=== PATIENT | male | born 1960 | race Caucasian/White ===

== ENCOUNTER → 2024-05-19 06:43 | Day surgery (SDC) | payer BC, SELFPAY ==
[2024-05-19 08:05] VITALS: BMI 47.0
--- NOTE | 2024-05-19 08:39 | ITS.CL.CARDI ---
Castings Trimmer - Cardioversion
Cardioversion
Procedure Report:
Date of Procedure: May 19 2024
Procedure: Cardioversion
Indication: Symptomatic atrial fibrillation
Performing Physician: Tu Ramirez DO [facility]
Technique: The patient was brought to the holding area. Signed informed consent was obtained. A time out was called and performed. The patient was anesthetized by the anesthesia service. Anticoagulation status was reviewed and appropriate. R2 pads
were placed anteriorly and posteriorly. A 250 J synchronized biphasic shock was unsuccessful in restoring normal sinus rhythm. A second and thrid attempt were also made with 300 and 360 J shocks respectively but these were also ineffective.
He tolerated the procedure well.
Conclusion: Unsuccessful uncomplicated cardioversion from atrial fibrillation.
Recommendation:
Routine post cardioversion care.
Continue rat farmer anticoagulation.
Discussed the need for continued wt loss, eval of sleep apnea and re-eval with cardiology to discuss other options.
Discussed with his as well. They were appreciative and understand recommendations.
== END ==
LOC: CATH 06:43
PROVIDERS: ATTENDING PHYSICIAN Nuclear Medicine Nuclear Cardiology; FAMILY PHYSICIAN Nurse Practitioner
DX: I48.91 Unspecified atrial fibrillation (principal); B19.20 Unspecified viral hepatitis C without hepatic coma; I10 Essential (primary) hypertension; K21.9 Gastro-esophageal reflux disease without esophagitis; E66.01 Morbid (severe) obesity due to excess calories; Z68.43 Body mass index [BMI] 50.0-59.9, adult; Z87.891 Personal history of nicotine dependence; Z79.01 Long term (current) use of anticoagulants
CPT/HCPCS: 92960; 93005

== ENCOUNTER → 2024-05-23 14:10 | Outpatient (REF) | payer BC, SELFPAY | LOC: RAD 14:10 | PROVIDERS: ATTENDING PHYSICIAN Nurse Practitioner | DX: L81.9 Disorder of pigmentation, unspecified (principal); L65.9 Nonscarring hair loss, unspecified; I73.9 Peripheral vascular disease, unspecified | CPT/HCPCS: 93922; 93925 ==

== ENCOUNTER → 2024-06-11 08:57 | Outpatient (REF) | payer BC, SELFPAY | LOC: HWRCS 08:57 | PROVIDERS: ATTENDING PHYSICIAN Physician Assistant Medical; FAMILY PHYSICIAN Nurse Practitioner | DX: I48.91 Unspecified atrial fibrillation (principal); I10 Essential (primary) hypertension | CPT/HCPCS: 93306 ==

== ENCOUNTER → 2024-06-25 16:03 | Outpatient (REF) | payer BC, SELFPAY | LOC: DHSLP 16:03 | PROVIDERS: ATTENDING PHYSICIAN Internal Medicine Cardiovascular Disease; FAMILY PHYSICIAN Nurse Practitioner | DX: G47.33 Obstructive sleep apnea (adult) (pediatric) (principal); R09.02 Hypoxemia | CPT/HCPCS: 95800 ==

== ENCOUNTER → 2024-08-29 07:32 | Outpatient (REF) | payer BC, SELFPAY | LOC: HWRAD 07:32 | PROVIDERS: ATTENDING PHYSICIAN Thoracic Surgery (Cardiothoracic Vascular Surgery); FAMILY PHYSICIAN Nurse Practitioner Family | DX: Z01.810 Encounter for preprocedural cardiovascular examination (principal); I36.1 Nonrheumatic tricuspid (valve) insufficiency; K75.9 Inflammatory liver disease, unspecified | CPT/HCPCS: 71275; 74174; 76705; Q9967 ==

== ENCOUNTER → 2024-09-08 07:13 | Day surgery (SDC) | payer BC, SELFPAY ==
[2024-09-08] MEDS: ASPIR LOW (ENTERIC COATED) 324 MG PO (08:18)
[2024-09-08 08:21] VITALS: BMI 47.7
[2024-09-08 08:25] VITALS: BP 109/66
--- NOTE | 2024-09-08 10:00 | PTCARENOTE ---
dr Whyte in to speak w pt reguarding consent. pt notified that he did not stop his eliquis as instructed. he last took it last night 12-8 at 8pm. therefore the procedure was cancelled for today and rescheduled for this sunday. pt was given
specific written and verbal instructions to hold eliquis until after case .and start asa tomorrow, since he was given asa today .
== END | disposition home or self-care (01) ==
LOC: CATH 07:13
PROVIDERS: ATTENDING PHYSICIAN Internal Medicine Interventional Cardiology; FAMILY PHYSICIAN Nurse Practitioner Family; OTHER PHYSICIAN Thoracic Surgery (Cardiothoracic Vascular Surgery)
DX: I10 Essential (primary) hypertension (principal); Z53.09 Procedure and treatment not carried out because of other contraindication; E66.9 Obesity, unspecified; E78.5 Hyperlipidemia, unspecified

== ENCOUNTER 2024-09-10 08:57 | Day surgery (SDC) | payer BC, SELFPAY ==
[2024-09-09 17:27] VITALS: BMI 47.0
[2024-09-10] VITALS (9 sets, daily range): BP systolic 92–168; BP diastolic 56–118
[2024-09-10] MEDS: NSS 500 IV (09:37)
--- NOTE | 2024-09-10 12:19 | ITS.CL.CATH ---
Afloat Cryptologic Manager - Catheterization
Cardiac Catheterization
Procedure Report:
LEFT HEART CATHETERIZATION
Date of Procedure: September 10, 2024
Referring: Cisco Moreno MD
PROCEDURES:
1. Left heart catheterization, coronary angiogram.
2. Ultrasound-guided access
INDICATION: Issa is a 64-year-old morbidly obese gentleman with past medical history of obstructive sleep apnea, hypertension, hyperlipidemia, paroxysmal atrial fibrillation, mild asthma, spinal stenosis with a 5.5 cm ascending thoracic aorta
being considered for elective ascending aortic replacement and is now being referred for a presurgical left heart catheterization to rule out obstructive CAD.
ACCESS: Right radial artery, 6 Nigerian sheath, under ultrasound guidance
HEMODYNAMICS : (mmHg)
AO (s/d) : 115/70
LV (s/d) : 115/16
LVEDP : 27
CORONARY FINDINGS--significant right subclavian tortuosity. We utilized 6 Nigerian JL 5 and 6 Nigerian 3 [facility] diagnostic catheters to selectively engage into the left and right coronary artery, respectively.
DOMINANCE: Right
LEFT MAIN: Left main artery is a large-caliber vessel which gives rise to the left anterior descending artery and the left circumflex artery. There is minimal luminal irregularities.
LEFT ANTERIOR DESCENDING: The left anterior descending artery is a large-caliber vessel which gives rise to multiple small to medium caliber diagonal branches as it courses to the anterior interventricular groove towards the apex. There is minimal
luminal irregularities.
CIRCUMFLEX: The left circumflex artery is a medium caliber vessel which gives rise to 1 medium caliber high rising OM branch and a second medium to large caliber OM 2 branch. There is minimal luminal irregularities.
RIGHT CORONARY ARTERY: The right coronary artery is a large-caliber, dominant vessel which gives rise to the right posterior descending artery. Mid RCA has a smooth tubular up to 50% stenosis.
SEDATION: 33 minutes of procedural sedation was utilized. An independent medical imaging specialist was present to assist with and help manage the patient's level of consciousness and physiologic status.
RADIATION SUMMARY: Fluoro Time (min): 8.9, Dose (mGy): 660.4, DAP (Gy.cm2) : 46.08
Closure Device: Vascular band over right radial artery, 10 cc of air.
CONCLUSIONS
1. No obstructive coronary artery disease.
2. Mid RCA has a smooth tubular up to 50% stenosis.
3. Significantly elevated LVEDP at 27 mmHg.
RECOMMENDATIONS
1. We will initiate low-dose beta-lupis in the setting of known ascending aortic aneurysm to reduce shear stress.
2. Wean radial band per protocol.
3. Optimization of cardiovascular risk factors.
4. Eventual referral for outpatient cardiac rehab post cardiac surgery.
Copy to: Cisco Moreno MD
Arlene Whyte MD, [facility], [facility]
[2024-09-10] MEDS: LASIX 20 MG IV (14:23)
== END 2024-09-10 16:34 | disposition home or self-care (01) ==
LOC: CATH 08:57
PROVIDERS: ATTENDING PHYSICIAN Internal Medicine Interventional Cardiology; FAMILY PHYSICIAN Nurse Practitioner Family; OTHER PHYSICIAN Thoracic Surgery (Cardiothoracic Vascular Surgery)
DX: I48.0 Paroxysmal atrial fibrillation (principal); I25.10 Atherosclerotic heart disease of native coronary artery without angina pectoris; I10 Essential (primary) hypertension; E78.5 Hyperlipidemia, unspecified; G47.33 Obstructive sleep apnea (adult) (pediatric); E66.01 Morbid (severe) obesity due to excess calories; Z68.42 Body mass index [BMI] 45.0-49.9, adult; Z87.891 Personal history of nicotine dependence; Z79.01 Long term (current) use of anticoagulants; Z79.85 Long-term (current) use of injectable non-insulin antidiabetic drugs; Z79.82 Long term (current) use of aspirin
CPT/HCPCS: 99152; 99153; C1894; C1769; 93458; Q9967

== ENCOUNTER 2024-09-15 05:05 | Inpatient (IN) | payer BC, SELFPAY ==
[2024-08-20 08:27] VITALS: BMI 47.6
[2024-08-20 09:29] LABS: % Basophils 0.8 % (0-2); % Eosinophils 1.8 % (0-6); % Immature Granulocytes 0.4 % (0-0.5); % Lymphocytes 21.9 % (20.5-51.1); % Monocytes 8.5 % (1.7-9.3); % Neutrophils 66.6 % (42.2-75.2); Absolute Basophils 0.1 10^3/uL (0-0.2); Absolute Eosinophils 0.1 10^3/uL (0-0.7); Absolute Lymphocytes 1.6 10^3/uL (1.2-3.4); Absolute Monocytes 0.6 10^3/uL (0.1-0.6); Absolute Neutrophils 4.8 10^3/uL (1.4-6.5); Hematocrit 43.4 % (39.0-52.0); Hemoglobin 14.6 g/dL (13.0-18.0); Mean Corp Hgb Conc. 33.6 g/dL (33.0-37.0); Mean Corpuscular Hgb 28.1 pg (27.0-31.0); Mean Corpuscular Volume 83.5 fL (80.0-94.0); Mean Platelet Volume 10.1 fL (7.4-10.4); Nucleated Red Blood Cells % 0 % (-); Platelet Count 234 10^3/uL (130-400); Red Cell Dist. Width 14.7 % (11.5-14.5); White Blood Cell Count 7.2 10^3/uL (4.8-10.8)
[2024-08-20 09:42] LABS: PT 16.7 Sec (11.4-14.6)
[2024-08-20 09:43] LABS: APTT 37.2 Sec (23.4-35.0)
[2024-08-20 10:05] LABS: ALT (SGPT) 21 U/L (0-50); AST (SGOT) 20 U/L (17-59); Albumin 4.8 g/dl (3.5-5.0); Alkaline Phosphatase 56 U/L (38-126); Blood Urea Nitrogen 14 mg/dl (9-20); Calcium 9.1 mg/dl (8.4-10.2); Carbon Dioxide 29 mmol/L (22-30); Chloride 100 mmol/L (98-107); Direct Bilirubin 0.2 mg/dl (0.0-0.4); Estimated Creatinine Clearance 108 ml/min; Glucose 99 mg/dl (70-99); Potassium 4.7 mmol/L (3.5-5.1); Sodium 142 mmol/L (135-145); Total Bilirubin 0.6 mg/dl (0.2-1.3); Total Protein 7.2 g/dl (6.3-8.2); eGFR > 60.00
[2024-08-20 10:19] LABS: Urine Albumin Trace (Neg - Trace); Urine Bilirubin Negative (Negative); Urine Character Clear (Clear); Urine Color Yellow; Urine Glucose Negative (Negative); Urine Ketone Negative (Negative); Urine Leukocyte Negative (Negative); Urine Nitrite Negative (Negative); Urine Occult Blood Negative (Negative); Urine Urobilinogen Negative (Neg - 1+)
--- NOTE | 2024-08-20 10:57 | CM ---
CM following for DC planning needs.
Met w/ patient and spouse during PATs for planned CT Surgery, 09/15.
Pt. resides w/ spouse in a private, 2 story home w/ 1 [address]. Functionally, patient is indep. at baseline w/ ADLs, mobility without the use of any assisted device, though, patient does have a SPC for use as needed and uses on occasion.
Spouse works but will be avail. upon DC to offer assist. Also has dtr., who lives close-by and is a [employer] SUPERVISOR.
Pt. has Rx plan and uses [facility] for Rx needs.
Reviewed pre and post op routines.
Soap, shower instructions and Cardiac Surgery booklet provided.
Discussed post op MD appointments, Cardiac Rehab and visit from CT Transitional Care RN.
Plan for surgery, 09/15.
Anticipated DC plan is for home with CT Transitional Care RN.
Will follow for DC planning needs.
[2024-08-20 15:44] LABS: Glycohemoglobin (HgbA1c) 5.4 % (4.0-5.6)
[2024-09-15] VITALS (12 sets, daily range): BP systolic 80–125; BP diastolic 44–86; PULSE 2–86; BMI 47.6; BMI 48.3
[2024-09-15] MEDS: MAGNESIUM OXIDE 500 MG PO (05:30)
[2024-09-15] MEDS: BACTROBAN 2% OINTMENT 1 APPLIC NASAL ×2 (05:30→19:52)
[2024-09-15] MEDS: LOPRESSOR 25 MG PO (05:30)
[2024-09-15] MEDS: PROTONIX 40 MG PO (05:30)
--- NOTE | 2024-09-15 06:15 | W.CVOR.SURPR ---
CVOR Surgeon Immed Pre Op
-
I have examined this patient prior to performance of the scheduled procedure.
The patient's condition is unchanged from the time of the dictated/written History and
Physical and the patient is able to undergo the scheduled procedure.
Hemiarch + LA MAZE + [place] Clip +/- AV Repair
--- NOTE | 2024-09-15 06:31 | PTCARENOTE ---
Patient ambulated onto unit escorted by security personnel. Prepared for OR; clipped surgical areas, wiped with CHG, wrist band applied. Took medications as prescribed. Admission questionnaire completed, patient oriented to room, at bedside.
Await CVOR call.
[2024-09-15 07:48] LABS: ACT+ - POC 104 Seconds (82-134)
[2024-09-15 08:37] LABS: Urine Albumin Negative (Neg - Trace); Urine Bilirubin Negative (Negative); Urine Character Clear (Clear); Urine Color Yellow; Urine Glucose Negative (Negative); Urine Ketone Negative (Negative); Urine Leukocyte Negative (Negative); Urine Nitrite Negative (Negative); Urine Occult Blood Negative (Negative); Urine Urobilinogen Negative (Neg - 1+); Urine pH 6.5 (5.0-9.0)
[2024-09-15 09:14] LABS: ACT+ - POC 701 Seconds (82-134)
[2024-09-15 09:36] LABS: B.E. - POC 0.4 mmol/L; Glucose - POC 110 mg/dl (70-99); HCO3 - POC 26 mmol/L (21-28); Hematocrit - POC 39 % PCV (42-52); Hemodilution- POC No; Hemoglobin Calculated - POC 13.3; Ionized Calcium - POC 1.23 mmol/L (1.15-1.33); O2 Saturation %Calculated-POC 99.5 % (94-98); PCO2 - POC 47 mmHg (35-48); PO2 - POC 170 mmHg (83-108); POC Comment PRE; Potassium - POC 4.3 mmol/L (3.5-5.1); Sodium - POC 137 mmol/L (136-145); Specimen Type - POC Arterial; pH - POC 7.36 (7.35-7.45)
[2024-09-15 09:48] LABS: ACT+ - POC 671 Seconds (82-134)
[2024-09-15 09:55] LABS: B.E. - POC 3.8 mmol/L; Glucose - POC 173 mg/dl (70-99); HCO3 - POC 30 mmol/L (21-28); Hematocrit - POC 30 % PCV (42-52); Hemodilution- POC Yes; Hemoglobin Calculated - POC 10.3; Ionized Calcium - POC 1.11 mmol/L (1.15-1.33); O2 Saturation %Calculated-POC 99.9 % (94-98); PCO2 - POC 55 mmHg (35-48); PO2 - POC 358 mmHg (83-108); POC Comment CPB; Potassium - POC 4.6 mmol/L (3.5-5.1); Sodium - POC 136 mmol/L (136-145); Specimen Type - POC Arterial; pH - POC 7.35 (7.35-7.45)
[2024-09-15 10:34] LABS: B.E. - POC 0.1 mmol/L; Glucose - POC 173 mg/dl (70-99); HCO3 - POC 27 mmol/L (21-28); Hematocrit - POC 31 % PCV (42-52); Hemodilution- POC Yes; Hemoglobin Calculated - POC 10.4; Ionized Calcium - POC 1.13 mmol/L (1.15-1.33); O2 Saturation %Calculated-POC 99.9 % (94-98); PCO2 - POC 51 mmHg (35-48); PO2 - POC 279 mmHg (83-108); POC Comment CPB; Potassium - POC 4.2 mmol/L (3.5-5.1); Sodium - POC 137 mmol/L (136-145); Specimen Type - POC Arterial; pH - POC 7.33 (7.35-7.45)
[2024-09-15 10:46] LABS: ACT+ - POC 726 Seconds (82-134)
[2024-09-15 11:08] LABS: B.E. - POC 3.6 mmol/L; Glucose - POC 214 mg/dl (70-99); HCO3 - POC 32 mmol/L (21-28); Hematocrit - POC 33 % PCV (42-52); Hemodilution- POC Yes; Hemoglobin Calculated - POC 11.1; Ionized Calcium - POC 1.15 mmol/L (1.15-1.33); O2 Saturation %Calculated-POC 99.9 % (94-98); PCO2 - POC 68 mmHg (35-48); PO2 - POC 355 mmHg (83-108); POC Comment WARM; Potassium - POC 4.2 mmol/L (3.5-5.1); Sodium - POC 137 mmol/L (136-145); Specimen Type - POC Arterial; pH - POC 7.28 (7.35-7.45)
[2024-09-15 11:17] LABS: ACT+ - POC 592 Seconds (82-134)
--- NOTE | 2024-09-15 11:24 | CM ---
Chart reviewed. Patient is independent of ADLS, lives with his in a [facility], [facility], uses a SPC occasionally. Plan is for the patient to return home with CT Transitional RN. CM to follow
[2024-09-15 11:40] LABS: B.E. - POC 0.9 mmol/L; Glucose - POC 221 mg/dl (70-99); HCO3 - POC 25 mmol/L (21-28); Hematocrit - POC 34 % PCV (42-52); Hemodilution- POC Yes; Hemoglobin Calculated - POC 11.5; Ionized Calcium - POC 1.09 mmol/L (1.15-1.33); O2 Saturation %Calculated-POC 99.7 % (94-98); PCO2 - POC 38 mmHg (35-48); PO2 - POC 201 mmHg (83-108); POC Comment CPB; Potassium - POC 3.3 mmol/L (3.5-5.1); Sodium - POC 140 mmol/L (136-145); Specimen Type - POC Arterial; pH - POC 7.43 (7.35-7.45)
[2024-09-15 11:51] LABS: ACT+ - POC 452 Seconds (82-134)
[2024-09-15 12:27] LABS: B.E. - POC -1.5 mmol/L; Glucose - POC 150 mg/dl (70-99); HCO3 - POC 23 mmol/L (21-28); Hematocrit - POC 34 % PCV (42-52); Hemodilution- POC Yes; Hemoglobin Calculated - POC 11.5; Ionized Calcium - POC 1.23 mmol/L (1.15-1.33); O2 Saturation %Calculated-POC 99.9 % (94-98); PCO2 - POC 39 mmHg (35-48); PO2 - POC 307 mmHg (83-108); POC Comment CPB; Potassium - POC 3.8 mmol/L (3.5-5.1); Sodium - POC 142 mmol/L (136-145); Specimen Type - POC Arterial; pH - POC 7.39 (7.35-7.45)
[2024-09-15 12:30] LABS: ACT+ - POC 104 Seconds (82-134)
[2024-09-15 12:43] LABS: Glucose - POC 122 mg/dl (70-99); HCO3 - POC 29 mmol/L (21-28); Hematocrit - POC 33 % PCV (42-52); Hemodilution- POC Yes; Hemoglobin Calculated - POC 11.3; Ionized Calcium - POC 1.07 mmol/L (1.15-1.33); O2 Saturation %Calculated-POC 99.9 % (94-98); PCO2 - POC 55 mmHg (35-48); PO2 - POC 342 mmHg (83-108); POC Comment POST; Potassium - POC 3.5 mmol/L (3.5-5.1); Sodium - POC 141 mmol/L (136-145); Specimen Type - POC Arterial; pH - POC 7.33 (7.35-7.45)
--- NOTE | 2024-09-15 12:58 | W.PN.CT.SURG ---
CT Surgery Operative Note
-
CARDIAC SURGERY OPERATIVE REPORT
Preoperative Diagnosis: Ascending aortic aneurysm with mild aortic valve sufficiency and atrial fibrillation
Postoperative Diagnosis: Same
Procedure(s) Performed:
1. Standard sternotomy with aortic and right atrial cannulation
2. Moderate hypothermic circulatory arrest with selective antegrade cerebral perfusion
3. Hemiarch aortic replacement
4. Aortic valve repair � resuspension of aortic valve at the commissures, debridement of aortic valve nodularity at the NCC, and plication of NCC with 5-0 prolene
5. Surgical open left atrial maze [combination of RF and cryo ablation]
6. Left atrial appendage exclusion [40 mm clip]
7. Placement of temporary atrial ventricular pacing wires
8. Transesophageal echocardiography
Date of Surgery: 09/15/2024
Comorbidities:
1. Ascending aortic aneurysm, 5.7 cm
2. Mild aortic valve insufficiency
3. Paroxysmal atrial fibrillation
4. Morbidly obese with a BMI of 48
5. Hypertension
6. Hyperlipidemia
7. 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
8. Hepatitis C status post antiviral treatment
9. Spinal stenosis with concomitant orthopedic issues
10. Neuropathy
11. XAVIER
12. History of smoking, quit 15 years ago
13. GERD
Attending Surgeon: Cisco Moreno MD, MS
Assistants: Anai Crespo PA-C (present and necessary to assistant terminal manager, retraction, suction, exposure, suture management, and wound closure under my direction)
Anesthesiology: Germán Luna MD and Renetta Blackwood CRNA
Scrub and Circulating RNs: Ros Hernández, RN, Portia Ramon RN
Lawyer [employer]: Francesco Bearden CCP
Anesthesia: GETA
EBL: per perfusion records
Products: 2 plts, 450 cell saver, and 800 of whole blood (autologous)
CPB Time: 155 minutes
Aortic Cross Clamp Time: 81 minutes
Circulatory Arrest Time: 23 minutes
Selective Antegrade Cerebral Perfusion Time: 22 minutes
MAZE Lesion Sets:
1. Box lesion to posterior LA wall
2. INDIANA lesion + IND[place] Exclusion + Division of Ligament of Jaime
3. Coronary sinus lesion
4. Posterior mitral annular line toward P2/P3
Indication(s) for Procedures: This is a 64-year-old male with multiple comorbidities being worked up for ablation and was found to have a significant ascending aortic aneurysm of 5.5 cm. Follow-up CTA with centerline measurement demonstrated a
maximum diameter of 5.7 with some tapering towards the innominate base. His root was preserved his STJ was slightly splayed and he had mild to moderate aortic valve insufficiency which was central. Given the size of his aneurysm as well as his
paroxysmal atrial fibrillation, he was offered hemiarch resection, repair of the aortic valve and maze for management of his atrial fibrillation.
Aortic Valve Description: Trileaflet aortic valve, with an abnormal appearing raphae at the right coronary cusp that formed into a pseudo commissure. Nodularity and thickening at the nodes of Arantius with some splaying of the leaflets secondary to
dilation of his sinotubular junction. The left and right coronary ostia within normal anatomic positions
Findings: His left ventricular ejection fraction preoperatively was preserved at 60 to 65% with no significant regional wall motion abnormalities. His LV was mildly dilated on preoperative transesophageal echocardiography. There is evidence that
he was severely overloaded. Following surgery his EF remained the same at 60% with no new regional wall motion abnormalities. He was preoperatively placed on 2 of dobutamine given his dilated LV. His head vessels were isolated at the innominate
and left common carotid. His hemiarch resection was performed under moderate hypothermic circulatory arrest at a temperature of 28 �C. Review selective cerebral perfusion via the innominate artery maintaining a pressure of 70 and had head
saturations that were within normal range. All abnormal and dilated aortic tissue was resected. Once the distal anastomosis was completed, flow to the body was resumed and rewarming was commenced. His aortic valve was resuspended at the
commissures using pledgeted 4-0 Prolene sutures. His noncoronary cusp had a significant area of nodularity and thickening towards the node of Arantius which I felt was not coapting as well as it should. This was resected with a 15 blade and then
the leaflet was plicated at the free margin there with 5-0 Prolene. Suction testing of the LVOT revealed the leaflets naturally warm to come together. The proximal anastomosis was then completed and transesophageal echocardiography was used to
evaluate the aortic valve. Initially he had mild to moderate aortic valve insufficiency with a vena contract that is bordering 0.5 cm. Following repair, he had mild aortic valve insufficiency. He has bilateral radial artery arterial tracings were
the same. His cardiac index was over 2, he required 2 platelets and also received scavenged blood from the field via Cell Saver and also was given back 800 cc of whole blood that was taken off during initial commencement of cardiopulmonary bypass.
Of note the left atrial appendage was verified to be free of any thrombus or debris preoperatively and was found to be totally occlusive postoperatively.
Specimen(s): Aortic tissue.
Prosthesis:
1. 28 mm single branch graft, serial #[id number]
2. Bovine biological patch, serial number [id number]
3. 40 mm left atrial appendage clip, serial number #[id number].
4. Sealant glue, nonpermanent, serial number [id number]
Description of Procedure: The patient was taken to the operating room. Their identity and procedure to be performed were verified and they were positioned supine on the operating table. Induction via general anesthesia with endotracheal intubation
was performed and central venous access and arterial monitoring were inserted. A preoperative transesophageal echocardiogram was performed to assess cardiac function and valvular function. The patient was then prepped and draped from chin to feet in
a sterile fashion. A preoperative time-out was performed with all members of the team present. A midline chest incision was performed along with median sternotomy. The innominate vein was isolated and pulled rostrally. Next the head vessels were
dissected out circumferentially surrounded with Vesseloops at the innominate artery base and the left common carotid. Full heparinization was given (a total of 60,000 units). We created a pericardial well. The pericardial reflection was then
dissected and I traveled more towards the arch freeing up the lesser curve from the ligament. At this point both the Vesseloops to the left common carotid and the innominate base were brought underneath the innominate vein into the field. The
aortic cannulation site was chosen where it was soft, pliable, and free of calcium. Cannulation was performed with an arterial cannula in the ascending aorta and a triple-stage venous cannula through the right atrial appendage. The arterial cannula
line had an appropriate bounce and correlating pressures with test dosing. 5-0 pledgeted Prolene was placed on the innominate base and a 12-gauge Angiocath was then inserted and connected by clamped to the pigtail off the aortic line. The ACT was
confirmed to be over 400 and retrograde autologous priming was performed before commencing cardiopulmonary bypass. The superior vena cava was then away from the right pulmonary artery. The oblique sinus was then developed manually with
fingers. Next the encompass clamp was passed through the transverse sinus and oblique sinuses below the SVC and IVC. 3 successful pairs of ablation were performed with RF ablation. The clamp was then removed from the field. The pulmonary artery
was away from the aorta to facilitate a clamp site and aortotomy. The aorta was then mobilized circumferentially towards his posterior reflection. A left ventricular vent was placed at the right superior pulmonary vein and secured. The
aortic cross-clamp was placed after decreasing the flow on the bypass and mean arterial pressure. A total of 1.0L initial dose of antegrade Del-Nido cardioplegia solution was given and planned for re-dosing every 75 minutes as necessary. There was
rapid electro-mechanical arrest of the heart at 400 cc of cardioplegia. The left ventricle was observed for distention on echocardiogram and manual palpation. Cold slush was placed into a sponge and topically on the RV while we systemically cooled
to 28 degrees centigrade. The heart was then medialized and the ligament Jaime was divided and the left atrial appendage was ligated with a 40 mm clip
Carbon dioxide was used to flood the field. We manually identified the location of the right coronary take off. An aortotomy was made approximately 2cm above the sinotubular junction and the aorta was fully transected. I then cut down towards the
commissures sequentially and placed 4-0 pledgeted sutures after freeing the surrounding structures off of the root. These were then tied to themselves. The noncoronary cusp was then shaved at the Stacy as it was very nodular and
thickened. A 5-0 Prolene suture was then used to plicate the free margin here and coaptation height seemed appropriate. At this point we had reached our desired temperature of 28 �C I turned my attention towards circulatory arrest and cinching
down on the head vessels. Flows on the bypass machine were then turned off and the cross-clamp was removed after placing the patient in steep Trendelenburg with ice pack around her head. I then removed the previous cannulation site and dissected
the aorta up towards the base the innominate and then circumferentially beveling underneath the lesser curve of the arch. A freestyle sizer was initially used to size the sinotubular junction which was 28 mm. A 28 mm graft with a single 8 mm
sidebranch was then brought to the field and soaked. It was beveled at the distal end and 4-0 Prolene was used to perform this anastomosis in a running fashion using bovine pericardium as a gasket. Once completed, surgical nonpermanent sealant was
placed around the suture lines. The innominate and left common carotid arteries were then allowed to backbleed and the pump was slowly turned back on after placing the aortic cannula into the 8 mm sidebranch. De-airing was performed of the distal
graft. The cross-clamp was then replaced and rewarming was commenced. The ACP cannula was then removed and the 5-0 Prolene pledgeted was then tied down. I then cut the graft to size and 4-0 Prolene was already placed at the commissures were used
to sew the proximal anastomosis using bovine pericardium as a gasket. Again surgical sealant that was nonpermanent was applied around the proximal suture line. A 16-gauge Angiocath was then inserted into the graft and de-airing maneuvers were
performed. A left atriotomy was created at the AV groove at this point and 3 additional cryo lines were performed at the left atrial appendage, the coronary sinus, and the mitral annular line. The left atrium was then closed with 3-0 Prolene in a
running fashion after de-airing. Temporary bipolar ventricular pacing wires were placed on the base of the right ventricle along with atrial pacing wires at the SVC right atrial junction. The patient was placed in a Trendelenburg position and flows
on bypass were lowered. The aortic cross clamp was removed and flows were slowly brought back up. The aortotomy appeared hemostatic. Transesophageal echocardiography revealed worsening aortic valve leak. Once de-airing was satisfactory, the left
ventricular and root vents were removed. After verifying acceptable parameters, we initiated weaning from cardiopulmonary bypass. Once we were off cardiopulmonary bypass, the venous cannula was clamped and removed. A test dose of protamine was
administered and the patient was monitored for any adverse reaction before resuming protamine. Once half of the protamine dose was delivered, pump suckers were turned off and the systolic blood pressure was lowered for aortic decannulation. Both
proximal and distal suture lines were evaluated for hemostasis. Additional pledgeted 4-0 Prolene repairs were performed. The aortic cannula was tied down with a heavy silk at the base of the 8 mm graft and then transected and double clipped with
large clips. All cannulation sites were oversewn with a 4-0 prolene. The aortotomy suture line was inspected and hemostasis was confirmed. Mediastinal hemostasis was obtained. Two 24Fr Saman drains were placed within the pericardium. The sternum was
approximated with 4#7 single and 3 #8 double stainless steel wires. 3 additional plates were placed given the patient's size at the manubrium, manubrial sternal junction, and lower sternal body. Fascia was approximated with #1 vicryl suture. The
subcutaneous, dermis and epidermis were closed in layers in a running fashion. The skin wound was cleansed and dressed.
All instrument, sponge, and needle counts were confirmed to be correct x 2 at the end of the operation. The patient was transferred to the cardiac intensive care unit in critical but stable condition.
I, Dr. Cisco Moreno, was present, scrubbed for, and performed all critical elements of this procedure.
Cisco Moreno MD, MS
Cardiothoracic Surgeon
[facility]
This operative dictation was created using the [employer] dictation system. Please excuse any grammatical, typographical, or 'sound alike' errors
--- NOTE | 2024-09-15 13:08 | CON.INTV ---
Consultation
Consultation Request
Date/Time Consultation Requested: 09/15/2024 - 1231
Date/Time Consultation Performed: 09/15/2024 - 1300
Requesting Provider: RUSSELL Lance
Performing Provider: Dr. Schreiber
Reason for Consultation: s/p AV repair
Medical History
-
Chief Complaint: Elective aortic valve repair with hemiarch aortic replacement
History of Present Illness:
64-year-old male with a past medical history of AAA without rupture, paroxysmal A-fib, mild intermittent asthma, hypertension, hyperlipidemia, insomnia, moderate XAVIER, former tobacco smoker, hep C s/p treatment and chronic back pain who presents with
aortic valve repair with hemiarch aortic replacement. Patient known to the cardiothoracic surgery service with last visit on 08/11/[address] Moreno. Patient recently had a CT chest as part of a preablation workup for a TAVR which showed a
fusiform aneurysmal dilatation of his ascending thoracic aorta measuring 5.5 cm in diameter. A CTA chest/abdomen/pelvis was repeated on 08/29/2024 showing a 5.7 cm aneurysmal dilatation of the ascending thoracic aorta. Prior echo performed on
06/11/2024 showed mild TR, mild AI with preserved LVEF at 55 � 60 %. He did undergo a left heart catheterization on 09/10/2024 showing no obstructive CAD, with a mid RCA smooth tubular 50% stenotic region with an elevated LVEDP at 27 mmHg.
Cardiothoracic surgical intervention with risks and benefits were discussed in detail, and patient agreed to surgery. Today he underwent a standard sternotomy with moderate hypothermic circulatory arrest with selective antegrade cerebral perfusion,
with hemiarch aortic replacement, aortic valve repair, and a surgical open left atrial maze with a left atrial appendage exclusion. There were no complications and he was transferred to the ICU postoperatively for further care.
Dump Truck Operator/pulmonary service is now consulted for additional management/recommendations.
When I saw the patient he was resting in bed, intubated on SIMV at 16/600/40%/8, with PIP 21 cmH2O, VTe 546 mL and breathing at 16 breaths/min. Currently, heart rate 84, BP via left radial A-line: 110/54, BP via right radial A-line: 111/58, PAP:
26/15, CO/CI: 4.91/1.88, respectively, and BP via NIBP: 87/60. He is currently on nitroglycerin drip at 10mcg/min, and dobutamine at 2mcg/kg/min, amio at 1mg/min and insulin drip at 2.3 units/hr. He has mediastinal chest tubes x [address]
Of note, patient follows with us in the [facility] office with last visit on 08/07/[address] Moreno. Patient had a home sleep apnea test performed on 06/25/2024 showing moderate XAVIER with an overall AHI of 16.5 with marleni O2 saturation of 81%. He is
agreeable to CPAP which is being arranged. He was told to follow-up with our office in 3 months for compliance of his PAP.
PMHx: Hep C s/p treatment, A-fib on Eliquis, asthma, obesity, spinal stenosis, arthritis, GERD, back pain, former tobacco use disorder, hypertension, hyperlipidemia, liver fibrosis, history of hemorrhoids, colonic polyps with tubuvillous adenoma,
insomnia, neuropathy, moderate XAVIER, osteoarthritis
PSHx: Bilateral knee replacements, laminectomy
Past Medical History
Past Medical History: Other (Above as per HPI)
Past Surgical History: Other (Above as per HPI)
Social History
Tobacco: Former Smoker (Smoked 1 PPD for 13 years, quit >10 years ago)
Alcohol: None
Drug: Marijuana (Smokes THC once a month)
Personal:
Living: With Family
Family History
Family History: CAD (Father + paternal aunt) and Diabetes (Mother + maternal uncle)
Allergies / Home Medications
Allergies
Allergy/AdvReac Type Severity Reaction Status Date / Time
No Known Allergies Allergy Verified 09/10/24 09:25
Home Medications
�Medication �Instructions �Recorded �Confirmed �Last Taken �Type
apixaban 5 mg tablet (Eliquis) 5 mg PO BID 03/02/23 09/10/24 09/07/24 20:00 History
diltiazem HCl 240 mg capsule,24 240 mg PO DAILY 03/02/23 09/10/24 09/10/24 07:00 History
hr,extended release
duloxetine 60 mg capsule,delayed 60 mg PO DAILYPRN PRN anxiety 03/02/23 09/10/24 09/09/24 07:00 History
release
trazodone 100 mg tablet 200 mg PO HSPRN PRN sleep 03/02/23 09/10/24 09/09/24 20:00 History
gabapentin 600 mg tablet 600 mg PO DAILY 07/23/24 09/10/24 09/09/24 07:00 History
semaglutide (weight loss) 1 mg/0.5 1 mg SC QWEEK 07/23/24 09/10/24 08/25/24 08:00 History
mL subcutaneous pen injector
(Wegovy)
Medical Cannibus 1 dose inhalation PRN PRN pain 08/18/24 09/10/24 08/31/24 08:00 History
Milk Thistle Turmeric 1 dose PO DAILY 08/18/24 09/10/24 09/09/24 07:00 History
ibuprofen 200 mg tablet (Advil) 400 mg PO Q6H PRN pain 08/18/24 09/10/24 Unknown History
docusate sodium 100 mg capsule 100 mg PO DAILY 09/08/24 09/10/24 09/09/24 20:00 History
(Stool Softener)
atorvastatin 40 mg tablet 40 mg PO DAILY #90 tabs 09/10/24 Unknown Rx
metoprolol succinate 25 mg 25 mg PO DAILY #90 tabs 09/10/24 Unknown Rx
tablet,extended release 24 hr
Review of Systems
-
Unable to Obtain full review of systems at this time due to: Patient Intubation
Vitals / Labs / Diagnostic Testing
Vital Signs
Temp Pulse Resp BP Pulse Ox
95.9 F L 82 16 80/44 93
09/15/24 16:00 09/15/24 16:04 09/15/24 16:00 09/15/24 15:52 09/15/24 16:04
Lab Data
09/15/24 13:11
Laboratory Results
09/15/24 09/15/24
13:11 14:33
PT 18.6 H
INR 1.52
APTT 33.4
pH 7.35 7.40
pCO2 49 H 43
pO2 71 L 101
HCO3 27.1 26.6
O2 Delivery Level vent
Diagnostic Testing:
Physical Exam
-
HEENT: Normocephalic, Anicteric, Other (ETT in place) and Other (Thick neck)
Cardiovascular: S1/S2 and Peripheral Edema (+1 LE edema)
Respiratory: Wheeze (negative), Rales (negative), Rhonchi (negative), Non-Labored Respirations, Other (chest tubes: mediastinal chest tubes x 2) and Other (Mechanical breath sounds heard bilaterally)
GI: Soft, Distended (Abdominal obesity), Non Tender and Normal Bowel Sounds
Neurology: Tremors (negative) and Other (Sedated)
Skin: Warm and Dry
General: Respiratory Distress (negative), Comfortable, Fever (negative) and Chills (negative)
Assessment
-
Assessment: 64-year-old male with a past medical history of AAA without rupture, paroxysmal A-fib, mild intermittent asthma, hypertension, hyperlipidemia, insomnia, moderate XAVIER, former tobacco smoker, hep C s/p treatment and chronic back pain who
presents with aortic valve repair with hemiarch aortic replacement. Patient known to the cardiothoracic surgery service with last visit on 08/11/[address] Moreno. Patient recently had a CT chest as part of a preablation workup for a TAVR which
showed a fusiform aneurysmal dilatation of his ascending thoracic aorta measuring 5.5 cm in diameter. A CTA chest/abdomen/pelvis was repeated on 08/29/2024 showing a 5.7 cm aneurysmal dilatation of the ascending thoracic aorta. Prior echo
performed on 06/11/2024 showed mild TR, mild AI with preserved LVEF at 55 � 60 %. He did undergo a left heart catheterization on 09/10/2024 showing no obstructive CAD, with a mid RCA smooth tubular 50% stenotic region with an elevated LVEDP at 27
mmHg. Cardiothoracic surgical intervention with risks and benefits were discussed in detail, and patient agreed to surgery. Today he underwent a standard sternotomy with moderate hypothermic circulatory arrest with selective antegrade cerebral
perfusion, with hemiarch aortic replacement, aortic valve repair, and a surgical open left atrial maze with a left atrial appendage exclusion. There were no complications and he was transferred to the ICU postoperatively for further care.
Dump Truck Operator/pulmonary service is now consulted for additional management/recommendations.
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
tubuvillous adenoma, insomnia, neuropathy, moderate XAVIER, osteoarthritis
Impression:
#Ascending aortic aneurysm with mild aortic valve insufficiency s/p aortic valve repair with hemiarch aortic replacement (POD #0)
#Paroxysmal A-fib on Eliquis s/p surgical open left atrial maze + left atrial appendage exclusion with 40 mm clip (POD #0)
#Anemia
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
#Hepatitis C s/p antiviral treatment
#Moderate XAVIER with CPAP being initiated as an outpatient
#GERD
#Former tobacco smoker (smoked 1 PPD for 13 years, quit >10 years ago)
#Morbid obesity (BMI: 48.3)
Plan:
Ventilator settings reviewed
FiO2 will be weaned to maintain SpO2 >90-94%
Minute ventilation will be adjusted
Arterial blood gases will be monitored
Spontaneous breathing trial will be attempted with hopeful extubation after anesthesia/sedation wear off
Given that he has a history of moderate obstructive sleep apnea and has a thick neck with severe morbid obesity, he may need to be extubated to CPAP/BiPAP especially if he still remains sleepy/lethargic at the time of extubation
prn nebulized bronchodilators
Pulmonary artery catheter parameters will be followed
Pressors/antihypertensive/inotropes/diuretics will be provided as needed
Maintain MAP>65
Replete electrolytes with K>4, Mg>2
Monitor chest tube output (mediastinal chest tubes x 2)
Monitor hemoglobin
Monitor platelet count and coags
Transfuse blood products as needed to maintain Hb>7g/dL, plt>50k (given post-operative status)
CT surgery managing chest tubes
Monitor blood sugar to maintain euglycemia with goal BG 140-180
Insulin drip per protocol
Aspiration precautions
VAP prevention protocol
DVT prophylaxis
Early nutrition
Early mobilization
Of note, patient should follow-up with us in the office as last visit was on 08/07/[address] Moreno. He follows with us for a history of moderate obstructive sleep apnea.
Critical care statement: A total of 46 minutes of critical care time was provided for this patient today. This includes management of ventilator, spontaneous breathing trial, arterial blood gases, pressors, of unstable vital signs, evaluation of the
patient at bedside, reviewing the patient's pertinent medical records including radiographs, microbiology, laboratory evaluations, and discussion with primary team and critical care nursing.
[2024-09-15 13:13] LABS: Glucose - Point of Care 139 mg/dl (70-99)
--- NOTE | 2024-09-15 13:27 | W.PN.UPDATE ---
Update Note
Progress Note Update
Crystalloid:� 1500
U.O.:� 725
UF:� 1250
Cellsaver: 450ml
Blood:� 2 plts
Wires:� A +V Wires
Inotropes:� Dobutamine 2.5
Pressors:� None
Antihypertensives: Cardene @8
Sedatives:� Precedex
�
NEURO: sedated on precedex, pupils +1mm B/L
RESP: #8OT @24cm lip> 600/60%/14/10. Lungs clear B/L. 2 mediastinal (20cc on arrival) chest tubes to -20cm suction. Sanguineous drainage
CV: RRR +S1, S2, no S3, no�rub, no murmur. Dermabond to median sternotomy. RIJ w/Snyder locked @ 50cm. PA 38/25; CVP 12;
ABD: round, soft, no BS
EXT: no edema, +2/4 DP pulses B/L, no femoral bruit, b/L radial A-line intact
: Gilmore with clear yellow urine
�
A/P: POD #0 s/p Hemiarch aortic replacement, Aortic valve repair � resuspension of aortic valve at the commissures, debridement of aortic valve nodularity at the NCC, and plication of NCC with 5-0 prolene, Surgical open left atrial maze
[combination of RF and cryo ablation], Left atrial appendage exclusion [40 mm clip]
ALYSSA: EF�Nml
- wean and extubate to bipap
- Monitor CT and urine output
- Follow up labs and CXR
- Titrate cardene for goal SBP 90-110
>>will add nitro gtt if additional medication is need for SBP control
>>if CI remains stable will titrate down Dobutamine for BP control
- Will start ASA tonight
- EKG showed SR with 1st degree AVB
- Cards consulted
�
# acute surgical blood loss anemia-expected
- trend CBC
- s/p 2plts and cell saver intraop
�
# post-op hyperglycemia
- insulin infusion x 24h
�
# Hyperlipidemia
- resume�lipitor
[2024-09-15 13:33] LABS: Hematocrit 35.3 % (39.0-52.0); Hemoglobin 12.2 g/dL (13.0-18.0); Platelet Count 171 10^3/uL (130-400)
[2024-09-15] MEDS: DILAUDID 0.5 MG IV ×4 (13:37→22:46)
[2024-09-15] MEDS: ANCEF 10 IV (13:38)
[2024-09-15] MEDS: NSS 500 IV (13:38)
[2024-09-15] MEDS: NOVOLOG FLEXPEN SC ×2 (13:38→15:44)
[2024-09-15] MEDS: NEURONTIN PO ×2 (13:38→15:44)
[2024-09-15] MEDS: TYLENOL PO (13:38)
[2024-09-15] MEDS: ANCEF 15 MG IV (13:38)
[2024-09-15] MEDS: LIPITOR PO (13:38)
[2024-09-15 13:44] LABS: APTT 33.4 Sec (23.4-35.0); INR 1.52; PT 18.6 Sec (11.4-14.6)
--- NOTE | 2024-09-15 13:45 | PTCARENOTE ---
Patient received from CVOR s/p hemiarch Ao replacement/AV repair/MAZE/[place] exclusion. NSR via cm, SaO2 @ 95% on ventilator, titrating FiO2 as able. RIJ Cordis/[place] catheter, L and R radial arterial lines present - all leveled, flushed, and
calibrated w/good waveforms returned. Epicardial A+V wires to pulse generator at back up rate 40bpm. Mediastinal chest tubes x 2, Y-connected to one pleurevac, placed to -20cm suction w/no air leak noted. Gilmroe catheter to gravity. All procedural
sites stable. Jeanine hugger applied. Labs drawn, EKG performed, pcxr obtained. See work list for full assessment, interventions performed, and intravenous infusions and titrations.
[2024-09-15 13:47] LABS: Blood Urea Nitrogen 18 mg/dl (9-20); Estimated Creatinine Clearance > 125 ml/min; Glucose 135 mg/dl (70-99); Magnesium 2.7 mg/dl (1.6-2.3)
[2024-09-15 13:51] LABS: B.E. 0.8 mmol/L; HCO3 27.1 mmol/L (21-28); Ionized Calcium 1.11 mMOL/L (1.15-1.33); O2 Saturation % 95.8 % (94-98); PCO2 49 mmHg (35-48); PO2 71 mmHg (83-108); Potassium 3.3 mMOL/L (3.5-5.1); Sodium 135 mMOL/L (136-145); pH 7.35 (7.35-7.45)
[2024-09-15 13:52] LABS: O2 Therapy vent
[2024-09-15 13:58] LABS: Mixed Venous O2 Saturation 79.4 %
[2024-09-15 14:01] LABS: Glucose - Point of Care 189 mg/dl (70-99)
[2024-09-15] MEDS: KCL 50 IV ×2 (14:09→15:09)
[2024-09-15] MEDS: CALCIUM GLUCONATE 100 IV ×2 (14:10→18:56)
[2024-09-15] MEDS: CARDENE 200 IV (14:18)
[2024-09-15 14:46] LABS: B.E. 1.5 mmol/L; HCO3 26.6 mmol/L (21-28); O2 Saturation % 98.4 % (94-98); PCO2 43 mmHg (35-48); PO2 101 mmHg (83-108)
[2024-09-15 15:00] LABS: Glucose - Point of Care 141 mg/dl (70-99)
[2024-09-15] MEDS: CORDARONE 518 MG IV (15:09)
[2024-09-15] MEDS: CORDARONE 103 MG IV (15:09)
[2024-09-15] MEDS: VERSED 0.5 MG IV (15:26)
[2024-09-15] MEDS: PACERONE PO (15:44)
[2024-09-15 15:59] LABS: Glucose - Point of Care 118 mg/dl (70-99)
[2024-09-15] MEDS: NITROGLYCERIN PREMIX 250 IV (16:15)
--- NOTE | 2024-09-15 16:35 | W.PN.CARDCBS ---
Today's Communication / Plan
-
RECOMMENDATIONS:
-Post op hemiarch for repair of thoracic aortic aneurysm, AV repair / resuspension
-Surgical maze and [place] clip
-Weaning pressors
-Goals for blood pressures outlined by CT surgery
-Will follow
Impression / Plan
-
Primary Cardiology: Dr. Nathaniel Gonzalez
PCP: Dr. Song Turner
IMPRESSION:
-Ascending aortic aneurysm:
Hemiarch aortic valve replacement
Aortic valve repair with resuspension of the valve at the commissure
Surgical Maze and [place] clip
-Paroxysmal atrial fibrillation: surgical Maze and [place] clip
-Hypertension
-Hyperlipidemia
-Asthma
-Liver fibrosis stage 1-2
-Morbid obesity
-Obstructive sleep apnea
-06/11/2024: Echo: LV: Normal size and function. EF 55-60%. Atrial fibrillation. RV: Normal, LA: Normal, RA: Normal, MV: Trace MR, AV: Mild AI, TV: Mild TR with estimated PAP 20-25 mmHg
-07/28/2024: CT chest: Fusiform dilation of the ascending thoracic aorta measuring 5.5 cm
-09/10/2024: Coronary angiography: Nonobstructive CADz
RECOMMENDATIONS:
-Post op hemiarch for repair of thoracic aortic aneurysm, AV repair / resuspension
-Surgical maze and [place] clip
-Weaning pressors
-Goals for blood pressures outlined by CT surgery
-Will follow
Progress Note - Crystal Syrup Maker
Subjective
Date of Service: September 15, 2024
Intubated and sedated post op.
Objective
Labs:
09/15/24 13:11
Labs
Hgb 12.2 g/dL (13.0-18.0) L 09/15/24 13:11
Hct 35.3 % (39.0-52.0) L 09/15/24 13:11
Plt Count 171 10^3/uL (130-400) 09/15/24 13:11
PT 18.6 Sec (11.4-14.6) H 09/15/24 13:11
INR 1.52 09/15/24 13:11
APTT 33.4 Sec (23.4-35.0) 09/15/24 13:11
Sodium 142 mmol/L (135-145) 08/20/24 08:56
Potassium 4.7 mmol/L (3.5-5.1) 08/20/24 08:56
BUN 18 mg/dl (9-20) 09/15/24 13:11
Creatinine 0.8 mg/dL (0.7-1.3) 09/15/24 13:11
Glucose 135 mg/dl (70-99) H 09/15/24 13:11
Vital Signs and I&O:
Vital Signs
Temp Pulse Resp BP Pulse Ox
95.9 F L 82 16 80/44 93
09/15/24 16:00 09/15/24 16:04 09/15/24 16:00 09/15/24 15:52 09/15/24 16:04
Vital Signs
Temp Pulse Resp BP Pulse Ox
95.9 F L 82 16 80/44 93
09/15/24 16:00 09/15/24 16:04 09/15/24 16:00 09/15/24 15:52 09/15/24 16:04
Intake & Output
09/12/24 09/13/24 09/14/24 09/15/24
23:59 23:59 23:59 23:59
Intake Total 430.9 / 430.9
Output Total 925 / 925
Balance -494.1 / -494.1
Physical Exam
Physical Exam
Gen: Intubated and sedated
HEENT: ET tube in place.
Lungs: Clear anterior and lateral
CV: RRR
Ext: No edema
[2024-09-15 17:02] LABS: Glucose - Point of Care 134 mg/dl (70-99)
[2024-09-15 17:24] LABS: Hematocrit 38.2 % (39.0-52.0); Hemoglobin 13.3 g/dL (13.0-18.0); Platelet Count 214 10^3/uL (130-400)
[2024-09-15] MEDS: ANCEF 5 IV (17:47)
[2024-09-15] MEDS: ASPIRIN 300 MG RECTAL (17:47)
[2024-09-15 17:58] LABS: Glucose - Point of Care 158 mg/dl (70-99)
[2024-09-15 18:10] LABS: B.E. 0.5 mmol/L; Ionized Calcium 1.17 mMOL/L (1.15-1.33); PCO2 44 mmHg (35-48); PO2 108 mmHg (83-108); Potassium 4.4 mMOL/L (3.5-5.1); pH 7.38 (7.35-7.45)
--- NOTE | 2024-09-15 19:00 | PTCARENOTE ---
report received from previous RN, walking rounds done. family at bedside. pt drowsy but oriented x4. pt wearing CPAP, POX 94%. B/L breath sounds present. CT x2 intact to -20cm wall suction, drainage WNL, no air leak present. SR w 1st degree AVB on
monitor, HR 80s. B/L radial and DP pulses palpable. heart tones distant. epicardial AV wires intact, set to back up VVI. no pacing spikes noted. RIJ cordis + swan intact w KVOs infusing. last CI 2.20. PAPs 20s/10s. CVP ~8. right radial and left
radial arterial lines intact. SBP 100s-110s. Nitro gtt infusing @ 10mcg. Amio gtt infusing @ 1mg. berry catheter intact, draining CYU. UO adequate. absent bowel sounds at this time. Insulin gtt infusing per glycemic protocol. all surgical sites
stable. see worklist for full assessment, VS, and interventions. pt resting between care.
[2024-09-15] MEDS: SENOKOT-S PO (19:10)
[2024-09-15 19:52] LABS: Glucose - Point of Care 146 mg/dl (70-99)
[2024-09-15] MEDS: ZOFRAN 4 MG IV (21:53)
[2024-09-15] MEDS: NEURONTIN 300 MG PO (21:53)
[2024-09-15] MEDS: TYLENOL 1000 MG PO (21:53)
[2024-09-15 22:10] LABS: Glucose - Point of Care 131 mg/dl (70-99)
--- NOTE | 2024-09-15 23:00 | PTCARENOTE ---
no acute changes in assessment, pt VSS. SR w 1st degree AVB, HR 70s. SBP 120s. Nitro gtt remains infusing @ 10mcg. Dobut gtt weaned off. last CI 2.30. Amio gtt infusing @ 0.5mg per protocol. POX 95% on 4LNC. CT output and UO WNL. all surgical sites
stable. Insulin gtt maintained per protocol. pt sleeping between care.
[2024-09-15 23:31] LABS: Glucose - Point of Care 120 mg/dl (70-99)
[2024-09-16] VITALS (20 sets, daily range): BP systolic 102–152; BP diastolic 63–95; PULSE 2–82; O2SAT 93–94; BMI 48.8
[2024-09-16 00:07] LABS: Glucose - Point of Care 120 mg/dl (70-99)
[2024-09-16 01:04] LABS: Glucose - Point of Care 115 mg/dl (70-99)
[2024-09-16 02:12] LABS: Glucose - Point of Care 108 mg/dl (70-99)
[2024-09-16] MEDS: ANCEF 5 IV ×2 (02:17→11:17)
[2024-09-16 02:23] LABS: Hemoglobin 12.7 g/dL (13.0-18.0); Mean Corp Hgb Conc. 34.3 g/dL (33.0-37.0); Mean Corpuscular Hgb 28.4 pg (27.0-31.0); Mean Corpuscular Volume 82.8 fL (80.0-94.0); Platelet Count 218 10^3/uL (130-400); Red Blood Cell Count 4.47 10^6/uL (4.70-6.10); Red Cell Dist. Width 14.6 % (11.5-14.5); White Blood Cell Count 14.7 10^3/uL (4.8-10.8)
--- NOTE | 2024-09-16 02:30 | ECGCV ---
Tyson Pinon PA-c notified of ECG critical value identified by electronic interpretation on ECG completed on 09/16/24, at 0222.
[2024-09-16 02:41] LABS: Blood Urea Nitrogen 22 mg/dl (9-20); Calcium 8.6 mg/dl (8.4-10.2); Carbon Dioxide 27 mmol/L (22-30); Chloride 103 mmol/L (98-107); Estimated Creatinine Clearance > 125 ml/min; Glucose 114 mg/dl (70-99); Magnesium 2.3 mg/dl (1.6-2.3); Potassium 5.3 mmol/L (3.5-5.1); Sodium 139 mmol/L (135-145); eGFR > 60.00
--- NOTE | 2024-09-16 03:00 | PTCARENOTE ---
pt VSS. no acute changes in assessment. SR w 1st degree, HR 70s. POX 95% on 4LNC. Amio gtt maintained @ 0.5mg. Dobut gtt remains off. CI 2.34. AM labs drawn and sent. CT output and UO WNL. Insulin gtt maintained. all surgical sites stable. pt
resting comfortably.
[2024-09-16 03:22] LABS: Mixed Venous O2 Saturation 70.1 %
[2024-09-16] MEDS: DILAUDID 0.5 MG IV ×3 (03:41→20:09)
[2024-09-16] MEDS: FLEXERIL 5 MG PO ×2 (03:42→12:53)
--- NOTE | 2024-09-16 03:59 | W.PN.CT ---
Today's Communication / Plan
-
Plan:
-No major issues overnight. Hemodynamically and neurologically intact
-Successfully extubated on 09/16/24 @ 1818 to BIPAP machine
-Weaned off dobutamine gtt this AM @ 0130, on and off NTG gtt overnight, on Amiodarone gtt per protocol given postop atrial tachycardia, remains on insulin gtt per protocol
-Currently in NSR @ 75 bpm. Pacer @ VVI 40 bpm. PO Amiodarone and BB placed currently on hold
-EKG this AM is showing ST-elevations in V1/V2, pt denies chest pain, but instead c/o back pain which he states is chronic. No rub on auscultation
-Last CI 2.34, MVO2 70.1, U/O since OR:1789
-Chest tube output: 2meds 170/290
-Lokelma given for hyperkalemia of 5.3, will check K @ 10 AM
-Cont. current meds (ASA, Lipitor, holding Lopressor and Amiodarone)
-Will benefit from SC heparin for DVT prophylaxis (given morbid obesity) until able able to resume Eliquis on POD#4
-Tele phase tomorrow when off insulin gtt per protocol. Renewed insulin gtt
-D/C swan and a-line once off dobutamine
-D/C'd right radial a-line @ 0400 (had 2 radial a-lines)
-Maintain berry another day
-Maintain temporary A/V PW (will d/c likely tomorrow)
-Maintain cordis
-Encourage use of IS
-Wean off of O2 as tolerated
-OOB into chair/Ambulate
Assessment / Plan
-
Assessment:
-S/P Standard sternotomy/Hemiarch aortic replacement/Aortic valve repair (resuspension of aortic valve at the commissures, debridement of aortic valve nodularity at the NCC, and plication of NCC with 5-0 prolene)/ Surgical open left atrial maze
[combination of RF and cryo ablation]/Left atrial appendage exclusion [40 mm clip], by Dr. Moreno, 09/15/24, pod#1
-Ascending aortic aneurysm, 5.7 cm
-Mild aortic valve insufficiency
-Mild TR
-Paroxysmal atrial fibrillation S/p Cardioversion x 3 on 05/19/24 (unsuccessful)
-Morbidly obese with a BMI of 48
-Hypertension
-Hyperlipidemia
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
-Hepatitis C status post antiviral treatment
-Spinal stenosis with concomitant orthopedic issues
-Chronic back pain
-Neuropathy
-Arthritis
-XAVIER (arrangement for CPAP as an outpatient by Pulmonary)
-Hx of tobacco use (1 ppd x 13 yrs, quit 15 years ago)
-Current marijuana use (smokes 1 once/month)
-GERD
-Hx GI bleed S/P Colonoscopy, 03/02/23 (internal hemorrhoids, otherwise unremarkable)
-S/p colonoscopy with polypectomy, 12/12/18
-S/p colonoscopy with polypectomy, 10/04/2017
-S/P EGD, 10/04/2017 (unremarkable)
-S/P Laminectomy x 3
-S/p B/L knee replacements
-Acute intraop/postop blood loss/Anemia (stable scavenged cell saver and 800 cc whole blood intraop)
-Intraop thrombocytopenia (transfused 2{5} pks of plts)
-Acute postop atelectasis
-Acute postop hypovolemia with subsequent hypervolemia
-Postop hyperkalemia, 5.3
Discussed patient care with: Cardiology, Nursing, Respiratory Therapy, Pharmacy and Care Team
Subjective
Procedure
S/P Standard sternotomy/Hemiarch aortic replacement/Aortic valve repair (resuspension of aortic valve at the commissures, debridement of aortic valve nodularity at the NCC, and plication of NCC with 5-0 prolene)/ Surgical open left atrial maze
[combination of RF and cryo ablation]/Left atrial appendage exclusion [40 mm clip], by Dr. Moreno, 09/15/24
-
Date of Service: September 16, 2024
Pt c/o back pain which he states is chronic, denies CP/SOB
Objective Data
-
Lab Results
09/16/24 02:11
09/16/24 02:11
PT 18.6 Sec (11.4-14.6) H 09/15/24 13:11
INR 1.52 09/15/24 13:11
APTT 33.4 Sec (23.4-35.0) 09/15/24 13:11
Vital Signs
Vital Signs
Temp Pulse Resp BP Pulse Ox
98.8 F 72 14 121/75 95
09/16/24 03:00 09/16/24 03:30 09/15/24 19:00 09/16/24 03:00 09/16/24 03:30
CT Intake/Output/Weight
09/15/24 09/15/24 09/16/24
06:59 18:59 06:59
Intake Total 615.4 / 1359.8 744.4 / 1359.8
Output Total 1195 / 1945 750 / 1945
Balance -579.6 / -585.2 -5.6 / -585.2
SaO2: 95 (4L)
Physical Exam
-
General: Awake, Oriented and AOx3
Cardiovascular: Regular rate & rhythm, No Murmurs, No Rub and No Gallop
Respiratory: Decreased Breath Sounds (at bases, otherwise clear)
Sternum: Stable
Incision: Clean, Dry, Intact and Dressing Intact
Extremities: Edema +1
Data Reviewed
-
Lab Results: Results Reviewed
Medications: Active Meds Reviewed
Chest X-Ray: Report Reviewed and Image Reviewed
ECG: Report Reviewed and Image Reviewed
[2024-09-16 04:15] LABS: Glucose - Point of Care 110 mg/dl (70-99)
--- NOTE | 2024-09-16 04:30 | PTCARENOTE ---
right radial art line d/c'd per orders. will keep pt lined otherwise per CT PA.
[2024-09-16] MEDS: LOKELMA 10 GRAM PO (05:50)
[2024-09-16] MEDS: TYLENOL 1000 MG PO ×3 (05:50→22:59)
[2024-09-16 05:58] LABS: Glucose - Point of Care 93 mg/dl (70-99)
--- NOTE | 2024-09-16 07:30 | PTCARENOTE ---
Assumed care of patient from mandrel cleaner RN. AAO x 3 Sitting up in chair. SR on monitor. Epicardial wire set at VVI 40. No pacing noted at present. Chest tubes x 2 to - 20 cm suction. No air leak or crepitus noted. Abdomen obese, with
hypoactive bowel sounds noted. Gilmore draining clear yellow urine. Sternal Incision c,d,i with surgical adhesive. plus 3 lower extremity edema noted. Pulses palpable. Insulin drip per glycemic protocol. Amiodarone infusing via cordis. See flow
sheets for totals/ titrations
[2024-09-16 08:15] LABS: Glucose - Point of Care 122 mg/dl (70-99)
--- NOTE | 2024-09-16 08:17 | W.PN.ANS.POP ---
Anesthesia Post Operative
- Anesthesia Post Op Note
Vital Signs Stable-See Nursing Note: Yes
Airway Patent: Yes
Adequate Pain Control: Yes
Change in Mental Status: No
Current Postoperative Nausea & Vomiting: No
Anesthesia Complications: No
General Anesthetic Recall: No
Unplanned Admission: No
Post Op Hydration Adequate: Yes
--- NOTE | 2024-09-16 08:28 | W.PN.INTV ---
Today's Communication / Plan
Recommendations
Pain control
Up OOB as tolerated
Cardiac rehab consult
Encourage incentive spirometer use
Maintain SpO2 >90 this 94%
PAP with sleep
Outpatient pulmonary/sleep office follow-up
Php Developer/Pulmonary services will continue to follow along while he remains in the CVICU; once transferred to CVICU�telemetry status then we will sign off at that time. Thank you for allowing us to be involved in the care of this patient and
please call back with any questions or concerns.
Assessment
-
Assessment: 64-year-old male with a past medical history of AAA without rupture, paroxysmal A-fib, mild intermittent asthma, hypertension, hyperlipidemia, insomnia, moderate XAVIER, former tobacco smoker, hep C s/p treatment and chronic back pain who
presents with aortic valve repair with hemiarch aortic replacement. Patient known to the cardiothoracic surgery service with last visit on 08/11/[address] Moreno. Patient recently had a CT chest as part of a preablation workup for a TAVR which
showed a fusiform aneurysmal dilatation of his ascending thoracic aorta measuring 5.5 cm in diameter. A CTA chest/abdomen/pelvis was repeated on 08/29/2024 showing a 5.7 cm aneurysmal dilatation of the ascending thoracic aorta. Prior echo
performed on 06/11/2024 showed mild TR, mild AI with preserved LVEF at 55 � 60 %. He did undergo a left heart catheterization on 09/10/2024 showing no obstructive CAD, with a mid RCA smooth tubular 50% stenotic region with an elevated LVEDP at 27
mmHg. Cardiothoracic surgical intervention with risks and benefits were discussed in detail, and patient agreed to surgery. Today he underwent a standard sternotomy with moderate hypothermic circulatory arrest with selective antegrade cerebral
perfusion, with hemiarch aortic replacement, aortic valve repair, and a surgical open left atrial maze with a left atrial appendage exclusion. There were no complications and he was transferred to the ICU postoperatively for further care.
Php Developer/pulmonary service is now consulted for additional management/recommendations.
Chronic conditions PRODUCE ASSISTANT: Hep C s/p treatment, A-fib on Eliquis, asthma, obesity, spinal stenosis, arthritis, GERD, back pain, former tobacco use disorder, hypertension, hyperlipidemia, liver fibrosis, history of hemorrhoids, colonic polyps with
tubuvillous adenoma, insomnia, neuropathy, moderate XAVIER, osteoarthritis
Impression:
#Ascending aortic aneurysm with mild aortic valve insufficiency s/p aortic valve repair with hemiarch aortic replacement (POD #1)
#Paroxysmal A-fib on Eliquis s/p surgical open left atrial maze + left atrial appendage exclusion with 40 mm clip (POD #1)
#Anemia
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
#Hepatitis C s/p antiviral treatment
#Moderate XAVIER with CPAP being initiated as an outpatient
#GERD
#Former tobacco smoker (smoked 1 PPD for 13 years, quit >10 years ago)
#Morbid obesity (BMI: 48.3)
Plan:
Patient successfully extubated on 09/15/2024 and is now on room air breathing comfortably with saturations of 95-96%
Maintain SpO2 >90-94%
Continue BiPAP with sleep given his Hx of XAVIER
prn nebulized bronchodilators
Encourage incentive spirometer use
Pulmonary artery catheter parameters will be followed
Pressors/antihypertensive/inotropes/diuretics will be provided as needed
Maintain MAP>65
Replete electrolytes with K>4, Mg>2
Monitor chest tube output (mediastinal chest tubes x 2)
Monitor hemoglobin
Monitor platelet count and coags
Transfuse blood products as needed to maintain Hb>7g/dL, plt>50k (given post-operative status)
CT surgery managing chest tubes
Monitor blood sugar to maintain euglycemia with goal BG 140-180
Insulin drip per protocol
Aspiration precautions
DVT prophylaxis
Early nutrition
Early mobilization
Of note, patient should follow-up with us in the office as last visit was on 08/07/[address] Moreno. He follows with us for a history of moderate obstructive sleep apnea.
Php Developer services will continue to follow along while patient remains in the CVICU. Once transferred to CVICU�telemetry status then we will sign off at that time.
Critical care statement: A total of 41 minutes of critical care time was provided for this patient today. This includes management of ventilator, spontaneous breathing trial, arterial blood gases, pressors, of unstable vital signs, evaluation of the
patient at bedside, reviewing the patient's pertinent medical records including radiographs, microbiology, laboratory evaluations, and discussion with primary team and critical care nursing.
Subjective Dataa
Subjective Data
Date of Service:
Date of Service: September 16, 2024
Chief Complaint: Php Developer Follow Up
Subjective:
Patient was seen and evaluated today at bedside. He endorses abdominal bloating but no abdominal pain, also denies chest pain, shortness of breath, fevers or chills. Afebrile overnight. Currently on insulin drip at 3.5 units/h as well as
amiodarone at 0.5mg/min. Mediastinal chest tubes x [address]. Heart rate currently 74 and he is breathing comfortably on room air with saturations 95%.
Review of Systems
General: Other (Negative unless mentioned above)
Objective Data
Data Reviewed
Vital Signs / I&O / Oxygen:
Vital Signs
Temp Pulse Resp BP Pulse Ox
99.5 F 75 20 112/71 95
09/16/24 08:00 09/16/24 08:00 09/16/24 08:00 09/16/24 07:00 09/16/24 08:00
Intake and Output
09/15/24 09/16/24 09/17/24
06:59 06:59 06:59
Intake Total 1479.9 / 1517.3 37.4 / 37.4
Output Total 2130 / 2195 65 / 65
Balance -650.1 / -677.7 -27.6 / -27.6
SaO2 [CPAP] 94
SaO2 [SIMV] 93
SaO2 95
Nasal Cannula flow liters per 2
minute
Physical Exam
General: Respiratory Distress (negative), Comfortable, Chills (negative) and Sweats (negative)
HEENT: Normocephalic and Anicteric
Cardiovascular: S1-S2 and Peripheral Edema (+3 non-pitting edema)
Respiratory: Wheeze (negative), Crackles (negative), Rhonchi (negative), Non-Labored Respirations and Chest Tube (Mediastinal chest tubes x 2)
GI: Soft, Distended (Abdominal obesity), Non Tender and Normal Bowel Sounds
Neurology: AO x 3 and Tremors (negative)
Skin: Warm, Dry, Cyanosis (negative) and Jaundice (negative)
Labs/Micro/Reports
Lab Data
09/16/24 02:11
Laboratory Results
09/15/24 09/15/24 09/15/24
13:11 14:33 17:56
PT 18.6 H
INR 1.52
APTT 33.4
pH 7.35 7.40 7.38
pCO2 49 H 43 44
pO2 71 L 101 108
HCO3 27.1 26.6 26.0
O2 Delivery Level vent
[2024-09-16] MEDS: NOVOLOG FLEXPEN 4 UNITS SC (08:43)
[2024-09-16] MEDS: LASIX 40 MG IV (08:43)
[2024-09-16] MEDS: NEURONTIN 300 MG PO ×3 (08:44→22:59)
[2024-09-16] MEDS: MAGNESIUM OXIDE 500 MG PO ×2 (08:44→20:18)
[2024-09-16] MEDS: ROXICODONE 5 MG PO ×4 (08:44→22:59)
[2024-09-16] MEDS: LOPRESSOR 12.5 MG PO ×3 (08:44→23:37)
[2024-09-16] MEDS: BACTROBAN 2% OINTMENT 1 APPLIC NASAL ×2 (08:44→20:16)
[2024-09-16] MEDS: LIDOCAINE 4% PATCH 1 PATCH TOPICAL (08:44)
[2024-09-16] MEDS: LIPITOR 40 MG PO (08:44)
[2024-09-16] MEDS: LOW STRENGTH ASPIRIN 81 MG PO (08:44)
[2024-09-16] MEDS: PROTONIX 40 MG PO (08:44)
[2024-09-16] MEDS: SENOKOT-S 1 TABLET PO ×2 (08:44→20:18)
--- NOTE | 2024-09-16 08:48 | W.PN.CARDCBS ---
Addendum entered and electronically signed by Ki Kapoor MD 09/16/24 10:28:
I saw and examined the patient.
The Manager Energy's note was reviewed and I agree with the note.
Comment:
GEN: No distress, awake, Ox3
HEENT: supple, anicteric, mmm
LUNGS: CTA, no wheezes/rales
CV: Reg, S1/S2, 1/6 syst LSB, no rub
ABD: soft, BS+, NT/ND
EXT: No edema
NEURO: Gross non-focal
SKIN: sternotmy
PLan:
Remains in sinus rhythm. Continue amiodarone.
EKG with diffuse ST elevation consistent with pericarditis.
Hemoglobin 12.7. Continue metoprolol and aspirin.
Resume full anticoagulation when okay with CT surgery.
Original Note:
Today's Communication / Plan
-
continue post op care
on IV amio, in SR
EKG consistent with pericarditis
Impression / Plan
-
Primary Cardiology: Dr. Nathaniel Gonzalez
PCP: Dr. Song Turner
IMPRESSION:
-Ascending aortic aneurysm
S/p hemiarch aortic valve replacement, aortic valve repair with resuspension of the valve at the commissure, surgical Maze and [place] clip 09/15/24
-Paroxysmal atrial fibrillation
-Chronic OAC with eliquis
-Hypertension
-Hyperlipidemia
-Asthma
-Liver fibrosis stage 1-2
-Morbid obesity
-Obstructive sleep apnea
-06/11/2024: Echo: LV: Normal size and function. EF 55-60%. Atrial fibrillation. RV: Normal, LA: Normal, RA: Normal, MV: Trace MR, AV: Mild AI, TV: Mild TR with estimated PAP 20-25 mmHg
-07/28/2024: CT chest: Fusiform dilation of the ascending thoracic aorta measuring 5.5 cm
-09/10/2024: Coronary angiography: Nonobstructive CADz
RECOMMENDATIONS:
-S/p hemiarch aortic valve replacement, aortic valve repair with resuspension of the valve at the commissure, surgical Maze and [place] clip 09/15/24
-doing well. off pressors
-wean supp O2 as able
-on IV amiodarone gtt due to brief PAF 09/15. currently in SR.
-EKG 09/16 reviewed - with diffuse mild ST elevations consistent with pericarditis compared to prior, follow
-reports low back pain which is chronic.
-hgb 12.7. continue asa. was on eliquis prior to admission
-given lokelma for hyperkalemia, follow
-continue post op care, OOB/IS as able
-d/w nursing
Progress Note - Electronic Communications Technician
Subjective
Date of Service: September 16, 2024
reports low back pain
Objective
Labs:
09/16/24 02:11
Labs
Hgb 12.7 g/dL (13.0-18.0) L 09/16/24 02:11
Hct 37.0 % (39.0-52.0) L 09/16/24 02:11
Plt Count 218 10^3/uL (130-400) 09/16/24 02:11
PT 18.6 Sec (11.4-14.6) H 09/15/24 13:11
INR 1.52 09/15/24 13:11
APTT 33.4 Sec (23.4-35.0) 09/15/24 13:11
Sodium 139 mmol/L (135-145) 09/16/24 02:11
Potassium 5.3 mmol/L (3.5-5.1) H 09/16/24 02:11
BUN 22 mg/dl (9-20) H 09/16/24 02:11
Creatinine 0.8 mg/dL (0.7-1.3) 09/16/24 02:11
Glucose 114 mg/dl (70-99) H 09/16/24 02:11
Vital Signs and I&O:
Vital Signs
Temp Pulse Resp BP Pulse Ox
99.5 F 75 20 112/71 95
09/16/24 08:00 09/16/24 08:00 09/16/24 08:00 09/16/24 07:00 09/16/24 08:00
Vital Signs
Temp Pulse Resp BP Pulse Ox
99.5 F 75 20 112/71 95
09/16/24 08:00 09/16/24 08:00 09/16/24 08:00 09/16/24 07:00 09/16/24 08:00
Intake & Output
09/14/24 09/15/24 09/16/24 09/17/24
07:59 07:59 07:59 07:59
Intake Total 1517.3 / 1517.3
Output Total 2195 / 2195
Balance -677.7 / -677.7
Physical Exam
Physical Exam
GEN: No distress, awake, alert, oriented x3. obese. on supp O2
HEENT: supple, anicteric, mmm, eomi
LUNGS: CTA anterolaterally, no wheezes
CV: Reg, S1/S2, no murmur
ABD: soft, protuberant, hypoactive BS
EXT: No cyanosis, clubbing. trace edema of B/L LE
NEURO: Gross non-focal
SKIN: Warm, pink, dry. No rash. Sternotomy incision c/d/i. CTs in place
LUIS MANUEL: jamal
--- NOTE | 2024-09-16 09:00 | PTCARENOTE ---
Assist x 2 oob to chair. No dumping noted from chest tubes. Pt states pain less with sitting in chair.
[2024-09-16 10:52] LABS: Glucose - Point of Care 110 mg/dl (70-99)
--- NOTE | 2024-09-16 11:16 | CM ---
Chart reviewed. Patient is independent of ADLS, lives with his in a [facility], 1 [place], ambulates with a SPC occasionally. Plan is for the patient to return home with CT Transitional RN. CM to follow
[2024-09-16 12:10] LABS: Potassium 4.9 mmol/L (3.5-5.1)
--- NOTE | 2024-09-16 12:30 | PTCARENOTE ---
Tolerating sitting up in the chair , pain management with roxycodone and flexeril doing well for patient. Appetite good. Glycemic protocol discontinued per PA. order. Assessment otherwise unchanged from prior.
[2024-09-16] MEDS: NSS IV (12:57)
[2024-09-16] MEDS: NOVOLOG FLEXPEN SC (12:59)
--- NOTE | 2024-09-16 13:00 | PTCARENOTE ---
Pt epicardial wire inappropriately spiking, V insulated at this time.
[2024-09-16] MEDS: FERRLECIT 110 MG IV (14:23)
[2024-09-16] MEDS: PACERONE 200 MG PO ×2 (15:53→22:59)
--- NOTE | 2024-09-16 15:57 | PTCARENOTE ---
VSS. Dilaudid administered for ongoing lower back pain (chronic). Appetite good. Assessment otherwise unchanged from prior.
[2024-09-16 17:14] LABS: Glucose - Point of Care 145 mg/dl (70-99)
--- NOTE | 2024-09-16 20:15 | PTCARENOTE ---
Report received from [facility]. Pt sitting in recliner chair. C/O 8-9/10 chronic lower back pain and sternal pain. Dilaudid 0.5 mg IV given for pain. Pillows and blankets provided for lower back support while in chair. Pt awake, alert, oriented x 4.
Moves all extremities equally. Speech clear. Pt on room air. Sat 92%. BBS present. Diminished bibasilarly. CDB and IS encouraged. IS peak 750-1000 mls. 1L/NC/O2 applied. Sat increased to 95%. Pt in SR. BP elevated. See flowsheets. AV wires attached
to temp pacing box. Box off. Mediastinal CTs x 2 to -20 cm suction. Draining SSG drainage. For pulse and wound assessments, see flowsheets. Belly soft, round, obese. Hypoactive bs x 4. Pt reports passing some flatus. No c/o abdominal pain. Pt with
indwelling berry. Draining clear, yellow urine. Ongoing plan of care. Daughter and son-in-law at [facility]. ISAIAH Bryant in to see pt.
[2024-09-16] MEDS: HEPARIN 5000 UNITS SC (20:17)
[2024-09-16 23:11] LABS: Glucose - Point of Care 134 mg/dl (70-99)
[2024-09-17] VITALS (19 sets, daily range): BP systolic 106–148; BP diastolic 57–91; PULSE 2–80; BMI 49.2
--- NOTE | 2024-09-17 | PTCARENOTE ---
Addendum entered by Jj Lemus RN 09/17/24 01:09:
Pt on bipap overnight while sleeping. Placed on bipap per RT. Sats up to 95% on Bipap.
Original Note:
Pt remains in recliner chair. Prefers recliner chair for comfort with chronic lower back pain. Does c/o 7-8/10 pain to lower back and sternum. Roxicodone 5 mg po given with scheduled meds. Additional Lopressor 12.5 mg po given per order ( see MAR).
CHG bath done.
[2024-09-17] MEDS: DILAUDID 0.5 MG IV ×3 (03:10→21:24)
--- NOTE | 2024-09-17 04:00 | PTCARENOTE ---
Pt given Dilaudid 0.5 mg IV for 06/10 chronic lower back pain. Labs drawn and sent. Pt Weighed on standing scale with 3 RNs. Repositioned in chair.
[2024-09-17 04:23] LABS: Hematocrit 37.2 % (39.0-52.0); Hemoglobin 12.6 g/dL (13.0-18.0); Mean Corp Hgb Conc. 33.9 g/dL (33.0-37.0); Mean Corpuscular Hgb 28.9 pg (27.0-31.0); Mean Corpuscular Volume 85.3 fL (80.0-94.0); Mean Platelet Volume 10.5 fL (7.4-10.4); Platelet Count 230 10^3/uL (130-400); Red Blood Cell Count 4.36 10^6/uL (4.70-6.10); Red Cell Dist. Width 14.8 % (11.5-14.5); White Blood Cell Count 19.2 10^3/uL (4.8-10.8)
--- NOTE | 2024-09-17 04:42 | W.PN.CT ---
Today's Communication / Plan
-
-pod #2
-hypertensive last night - gave extra 12.5 mg Lopressor and increased BB to 25 bid
-in nsr 70s-80s (pw @ VVI 40 backup)
-no drips
-CT output: 2 meds 105/290 in 12/24 hrs
-current meds (ASA, Lipitor, Lopressor, Amio, iv iron, Protonix, sq Heparin). Preop was on Eliquis for paf
-DVT prophylaxis with sq Heparin
-encourage IS (750-1000 so far), OOB
Assessment / Plan
-
Assessment:
-S/P Standard sternotomy/Hemiarch aortic replacement/Aortic valve repair (resuspension of aortic valve at the commissures, debridement of aortic valve nodularity at the NCC, and plication of NCC with 5-0 prolene)/ Surgical open left atrial maze
[combination of RF and cryo ablation]/Left atrial appendage exclusion [40 mm clip], by Dr. Moreno, 09/15/24, pod#2
-Ascending aortic aneurysm, 5.7 cm
-Mild aortic valve insufficiency
-Mild TR
-Paroxysmal atrial fibrillation S/p Cardioversion x 3 on 05/19/24 (unsuccessful)
-Morbidly obese with a BMI of 48
-Hypertension
-Hyperlipidemia
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
-Hepatitis C status post antiviral treatment
-Spinal stenosis with concomitant orthopedic issues
-Chronic back pain
-Neuropathy
-Arthritis
-XAVIER (arrangement for CPAP as an outpatient by Pulmonary)
-Hx of tobacco use (1 ppd x 13 yrs, quit 15 years ago)
-Current marijuana use (smokes 1 once/month)
-GERD
-Hx GI bleed S/P Colonoscopy, 03/02/23 (internal hemorrhoids, otherwise unremarkable)
-S/p colonoscopy with polypectomy, 12/12/18
-S/p colonoscopy with polypectomy, 10/04/2017
-S/P EGD, 10/04/2017 (unremarkable)
-S/P Laminectomy x 3
-S/p B/L knee replacements
-Acute intraop/postop blood loss/Anemia (stable scavenged cell saver and 800 cc whole blood intraop)
-Intraop thrombocytopenia (transfused 2{5} pks of plts)
-Acute postop atelectasis
-Acute postop hypovolemia with subsequent hypervolemia
-Postop hyperkalemia, 5.3- improved with Lokelma
Discussed patient care with: Nursing and Care Team
Subjective
Procedure
S/P Standard sternotomy/Hemiarch aortic replacement/Aortic valve repair (resuspension of aortic valve at the commissures, debridement of aortic valve nodularity at the NCC, and plication of NCC with 5-0 prolene)/ Surgical open left atrial maze
[combination of RF and cryo ablation]/Left atrial appendage exclusion [40 mm clip], by Dr. Moreno, 09/15/24
-
Date of Service: September 17, 2024
Objective Data
-
PT 18.6 Sec (11.4-14.6) H 09/15/24 13:11
INR 1.52 09/15/24 13:11
APTT 33.4 Sec (23.4-35.0) 09/15/24 13:11
Vital Signs
Vital Signs
Temp Pulse Resp BP Pulse Ox
99.2 F 77 16 139/77 94
09/16/24 23:25 09/16/24 23:37 09/16/24 23:25 09/16/24 23:37 09/16/24 23:25
CT Intake/Output/Weight
09/16/24 09/16/24 09/17/24
06:59 18:59 06:59
Intake Total 864.5 / 1517.3 1308.2 / 1358.2 50 / 1358.2
Output Total 935 / 2195 1930 / 2250 320 / 2250
Balance -70.5 / -677.7 -621.8 / -891.8 -270 / -891.8
SaO2: 94
Physical Exam
-
General: Awake and AOx3
Cardiovascular: Regular rate & rhythm, No Murmurs and No Rub
Respiratory: Decreased Breath Sounds
Sternum: Stable
Incision: Clean, Dry and Intact
Extremities: Edema +2
Abdomen: soft, nontender, + flatus, + bowel sounds
Data Reviewed
-
Lab Results: Results Reviewed
Medications: Active Meds Reviewed
Chest X-Ray: Report Reviewed and Image Reviewed
ECG: Report Reviewed and Image Reviewed
[2024-09-17 05:00] LABS: Blood Urea Nitrogen 25 mg/dl (9-20); Calcium 8.7 mg/dl (8.4-10.2); Carbon Dioxide 30 mmol/L (22-30); Chloride 96 mmol/L (98-107); Estimated Creatinine Clearance 123 ml/min; Glucose 127 mg/dl (70-99); Magnesium 2.1 mg/dl (1.6-2.3); Sodium 134 mmol/L (135-145); eGFR > 60.00
[2024-09-17] MEDS: TYLENOL 1000 MG PO ×3 (06:54→21:23)
[2024-09-17] MEDS: ROXICODONE 5 MG PO ×3 (06:54→17:32)
--- NOTE | 2024-09-17 07:36 | PTCARENOTE ---
Assumed care of patient from mold shifter RN. AAO x 3 sitting up in the chair. SR on monitor. Epicardial wires insulated. Lungs clear but decreased bilaterally. Chest tubes x 2 to - 20 cm suction. No air leak or crepitus noted. Abdomen obese,
passing flatus. Gilmore cath with yellow urine. Sternal incision well approximated, ARTURO with surgical adhesive. Plus 3 pitting edema in bilateral lower extremities. Pulses palpable. Plan for day discussed.
[2024-09-17] MEDS: MAGNESIUM OXIDE 500 MG PO ×2 (08:00→19:40)
[2024-09-17] MEDS: LASIX 40 MG IV (08:00)
[2024-09-17] MEDS: LOW STRENGTH ASPIRIN 81 MG PO (08:00)
[2024-09-17] MEDS: NEURONTIN 300 MG PO ×3 (08:01→21:23)
[2024-09-17] MEDS: PROTONIX 40 MG PO (08:01)
[2024-09-17] MEDS: LIPITOR 40 MG PO (08:01)
[2024-09-17] MEDS: LOPRESSOR 25 MG PO ×2 (08:01→19:41)
[2024-09-17] MEDS: FLEXERIL 5 MG PO (08:01)
[2024-09-17] MEDS: SENOKOT-S 1 TABLET PO ×2 (08:01→19:41)
[2024-09-17] MEDS: PACERONE 200 MG PO ×3 (08:02→21:24)
[2024-09-17] MEDS: HEPARIN 5000 UNITS SC ×2 (08:02→19:41)
[2024-09-17] MEDS: LIDOCAINE 4% PATCH 1 PATCH TOPICAL (08:02)
[2024-09-17] MEDS: BACTROBAN 2% OINTMENT 1 APPLIC NASAL ×2 (08:02→19:43)
--- NOTE | 2024-09-17 08:55 | PTCARENOTE ---
Assist x 2 into bed after dilaudid administered for lower back pain. Epicardial wires removed by CT [employer]. BP Q 15 minutes per protocol . Will monitor closely.
--- NOTE | 2024-09-17 10:00 | PTCARENOTE ---
chest tubes removed per BURNING SUPERVISOR order. Pt tolerated w/o issue. Resting in bed after. Gilmore cath also removed at this time. Will follow
--- NOTE | 2024-09-17 12:22 | CM ---
Chart reviewed. Patient is independent of ADLS, lives with his in a [address], 1 [facility], occasionally uses a SPC. Plan is for the patient to return home with CT Transitional RN. CM to follow
[2024-09-17] MEDS: NSS IV (12:36)
[2024-09-17] MEDS: FERRLECIT 110 MG IV (13:30)
--- NOTE | 2024-09-17 15:21 | W.PN.CARDCBS ---
Today's Communication / Plan
-
Stable cardiology status postop
Impression / Plan
-
Primary Cardiology: Dr. Nathaniel Gonzalez
PCP: Dr. Song Turner
IMPRESSION:
-Ascending aortic aneurysm
S/p hemiarch aortic valve replacement, aortic valve repair with resuspension of the valve at the commissure, surgical Maze and [place] clip 09/15/24
-Paroxysmal atrial fibrillation
-Chronic OAC with eliquis
-Hypertension
-Hyperlipidemia
-Asthma
-Liver fibrosis stage 1-2
-Morbid obesity
-Obstructive sleep apnea
-06/11/2024: Echo: LV: Normal size and function. EF 55-60%. Atrial fibrillation. RV: Normal, LA: Normal, RA: Normal, MV: Trace MR, AV: Mild AI, TV: Mild TR with estimated PAP 20-25 mmHg
-07/28/2024: CT chest: Fusiform dilation of the ascending thoracic aorta measuring 5.5 cm
-09/10/2024: Coronary angiography: Nonobstructive CADz
RECOMMENDATIONS:
Doing well postop
Remains in sinus rhythm
Progress Note - Head Refrigeration Engineer
Subjective
Date of Service: September 17, 2024
No complaints
Objective
Labs:
09/17/24 04:09
09/17/24 04:09
Labs
Hgb 12.6 g/dL (13.0-18.0) L 09/17/24 04:09
Hct 37.2 % (39.0-52.0) L 09/17/24 04:09
Plt Count 230 10^3/uL (130-400) 09/17/24 04:09
PT 18.6 Sec (11.4-14.6) H 09/15/24 13:11
INR 1.52 09/15/24 13:11
APTT 33.4 Sec (23.4-35.0) 09/15/24 13:11
Sodium 134 mmol/L (135-145) L 09/17/24 04:09
Potassium 5.0 mmol/L (3.5-5.1) 09/17/24 04:09
BUN 25 mg/dl (9-20) H 09/17/24 04:09
Creatinine 0.9 mg/dL (0.7-1.3) 09/17/24 04:09
Glucose 127 mg/dl (70-99) H 09/17/24 04:09
Vital Signs and I&O:
Vital Signs
Temp Pulse Resp BP Pulse Ox
97.6 F 72 18 118/63 93
09/17/24 11:33 09/17/24 11:33 09/17/24 11:33 09/17/24 11:00 09/17/24 11:33
Vital Signs
Temp Pulse Resp BP Pulse Ox
97.6 F 72 18 118/63 93
09/17/24 11:33 09/17/24 11:33 09/17/24 11:33 09/17/24 11:00 09/17/24 11:33
Intake & Output
09/15/24 09/16/24 09/17/24 09/18/24
06:59 06:59 06:59 06:59
Intake Total 1479.9 / 1517.3 1928.2 / 1928.2 380 / 380
Output Total 2130 / 2195 2515 / 2515 1320 / 1320
Balance -650.1 / -677.7 -586.8 / -586.8 -940 / -940
Physical Exam
Physical Exam
General: Well developed, well nourished in NAD.
Neck: Supple, no JVD, HJR, carotids +2 B/L, no bruits bilaterally.
Heart: Non displaced PMI, RRR, no murmurs, No S3, S4, no rubs.
Lungs: Scattered rhonchi
Sternal dressings noted
Extremities: No clubbing, cyanosis or edema bilaterally.
Neuro: Grossly nonfocal, awake, alert and oriented x3.
--- NOTE | 2024-09-17 15:54 | PTCARENOTE ---
OOb ambulating in room and hallway with RN. Gait steady, Tires easily but recovers with rest. Pulse ox 96% room air. Using IS to 1000 consistently. Pain well managed since CT out. Will continue to monitor. Assessment otherwise unchanged from
prior.
--- NOTE | 2024-09-17 20:00 | PTCARENOTE ---
Resumed care of pt sitting in chair AAOx3. HR in the 70's in NSR on the monitor. POX 93% on RA. Lungs dec t/o. PERRY. + bowel, round obese abd. +3 pitting B/L LE/UE edema noted. Palpable peripheral pulses present. Right hand int accidentally removed
by pt, dressing applied. Right IJ cordis in place. Sternal incision open to air with surg glue in place. Old CT sites assessed, dressing intact. Pt OOB with assist to bathroom when needed. Pt reports chronic back pain, otherwise denies any
complaints. Call friedman in reach. Will continue to monitor.
[2024-09-17] MEDS: DESENEX/MITRAZOL/ZEASORB 1 APPLIC TOPICAL (21:33)
--- NOTE | 2024-09-17 22:07 | PTCARENOTE ---
Pt assisted back to bed. Ilene care provided. Desenex powder to groin/ scrotum as ordered. 2 LO2 NC applied. Pain medication administered as ordered. Pt positioned per comfort. Call friedman in reach. Will continue to monitor.
[2024-09-18] VITALS (16 sets, daily range): BP systolic 113–133; BP diastolic 55–73; PULSE 2–82; O2SAT 93–97; BMI 49.2
[2024-09-18 04:18] LABS: Hematocrit 32.6 % (39.0-52.0); Hemoglobin 11.1 g/dL (13.0-18.0); Mean Corpuscular Volume 85.1 fL (80.0-94.0); Mean Platelet Volume 10.3 fL (7.4-10.4); Platelet Count 176 10^3/uL (130-400); Red Blood Cell Count 3.83 10^6/uL (4.70-6.10); Red Cell Dist. Width 14.4 % (11.5-14.5); White Blood Cell Count 13.2 10^3/uL (4.8-10.8)
[2024-09-18 04:44] LABS: Blood Urea Nitrogen 20 mg/dl (9-20); Calcium 8.3 mg/dl (8.4-10.2); Carbon Dioxide 30 mmol/L (22-30); Chloride 96 mmol/L (98-107); Estimated Creatinine Clearance > 125 ml/min; Glucose 112 mg/dl (70-99); Magnesium 2.1 mg/dl (1.6-2.3); Sodium 134 mmol/L (135-145); eGFR > 60.00
[2024-09-18] MEDS: TYLENOL 1000 MG PO ×3 (05:19→19:39)
--- NOTE | 2024-09-18 06:15 | W.PN.CT ---
Today's Communication / Plan
-
-pod #3
-no issues overnight, ambulated in the room
-in nsr 70s. Plans to restart Eliquis for paf on 09/19
-wt is up 6 lbs from preop. Diuresed with 40 iv Lasix on 09/17 (UO 1550)- continue
-current meds (ASA, Lipitor, Lopressor 25 bid, Amio, iv iron, Protonix, sq Heparin).
-DVT prophylaxis with sq Heparin (will stop after restarting Eliquis on Sun)
-encourage IS, OOB, ambulate
Assessment / Plan
-
Assessment:
-S/P Standard sternotomy/Hemiarch aortic replacement/Aortic valve repair (resuspension of aortic valve at the commissures, debridement of aortic valve nodularity at the NCC, and plication of NCC with 5-0 prolene)/ Surgical open left atrial maze
[combination of RF and cryo ablation]/Left atrial appendage exclusion [40 mm clip], by Dr. Moreno, 09/15/24, pod#3
-Ascending aortic aneurysm, 5.7 cm
-Mild aortic valve insufficiency
-Mild TR
-Paroxysmal atrial fibrillation S/p Cardioversion x 3 on 05/19/24 (unsuccessful)
-Morbidly obese with a BMI of 48
-Hypertension
-Hyperlipidemia
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
-Hepatitis C status post antiviral treatment
-Spinal stenosis with concomitant orthopedic issues
-Chronic back pain
-Neuropathy
-Arthritis
-XAVIER (arrangement for CPAP as an outpatient by Pulmonary)
-Hx of tobacco use (1 ppd x 13 yrs, quit 15 years ago)
-Current marijuana use (smokes 1 once/month)
-GERD
-Hx GI bleed S/P Colonoscopy, 03/02/23 (internal hemorrhoids, otherwise unremarkable)
-S/p colonoscopy with polypectomy, 12/12/18
-S/p colonoscopy with polypectomy, 10/04/2017
-S/P EGD, 10/04/2017 (unremarkable)
-S/P Laminectomy x 3
-S/p B/L knee replacements
-Chronic leg edema, wears TEDs
-Acute intraop/postop blood loss/Anemia (stable scavenged cell saver and 800 cc whole blood intraop)
-Intraop thrombocytopenia (transfused 2{5} pks of plts)
-Acute postop atelectasis
-Acute postop hypovolemia with subsequent hypervolemia
-Postop hyperkalemia, 5.3- improved with Lokelma
Discussed patient care with: Nursing and Care Team
Subjective
Procedure
S/P Standard sternotomy/Hemiarch aortic replacement/Aortic valve repair (resuspension of aortic valve at the commissures, debridement of aortic valve nodularity at the NCC, and plication of NCC with 5-0 prolene)/ Surgical open left atrial maze
[combination of RF and cryo ablation]/Left atrial appendage exclusion [40 mm clip], by Dr. Moreno, 09/15/24
-
Date of Service: September 18, 2024
Objective Data
-
PT 18.6 Sec (11.4-14.6) H 09/15/24 13:11
INR 1.52 09/15/24 13:11
APTT 33.4 Sec (23.4-35.0) 09/15/24 13:11
Vital Signs
Vital Signs
Temp Pulse Resp BP Pulse Ox
97.8 F 72 20 148/71 93
09/17/24 23:17 09/17/24 23:00 09/17/24 23:17 09/17/24 22:00 09/17/24 23:17
CT Intake/Output/Weight
09/17/24 09/17/24 09/18/24
06:59 18:59 06:59
Intake Total 620 / 1928.2 780 / 780
Output Total 585 / 2515 1570 / 1570
Balance 35 / -586.8 -790 / -790
SaO2: 93
Physical Exam
-
General: Awake and AOx3
Cardiovascular: Regular rate & rhythm, No Murmurs and No Rub
Respiratory: Decreased Breath Sounds
Sternum: Stable
Incision: Clean, Dry and Intact
Abdomen: soft, nontender, + flatus, + bowel sounds
Extremities: Edema +2
Data Reviewed
-
Lab Results: Results Reviewed
Medications: Active Meds Reviewed
Chest X-Ray: Report Reviewed and Image Reviewed
ECG: Report Reviewed and Image Reviewed
--- NOTE | 2024-09-18 07:45 | PTCARENOTE ---
Assumed care of patient. Walking rounds completed with previous RN. Pt assessed while he was sitting in the chair. pt alert and oriented x4. C/o chronic lower back pain, refuses pain meds at this time; lidocaine patch applied. ALVARADO with equal
strength throughout. NSR with 1st degree AVB on tele with rates in the 70s. BP 114/55. Heart tones audible. Bilateral radial and DP pulses weakly palpable. Generalized +2 edema. POX 97% on 2L NC, titrated to RA, POX 94%. Lungs diminished in the
bases. No cough noted. IS encouraged-1000mL achieved. Abdomen soft, round, obese, nontender. +BS. Due to void for this RN. 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 Old chest tube sites covered. Groin dryness, Desenex applied. Right IJ cordis intact. Left
hand 22g PIV intact. See MAR for medication administration. See worklist for complete nursing assessment. Plan of care reviewed and patient in agreement.
[2024-09-18] MEDS: BACTROBAN 2% OINTMENT 1 APPLIC NASAL ×2 (08:15→19:41)
[2024-09-18] MEDS: PROTONIX 40 MG PO (08:16)
[2024-09-18] MEDS: LIDOCAINE 4% PATCH 1 PATCH TOPICAL (08:16)
[2024-09-18] MEDS: NEURONTIN 300 MG PO ×3 (08:16→22:46)
[2024-09-18] MEDS: HEPARIN 5000 UNITS SC ×2 (08:16→19:41)
[2024-09-18] MEDS: FLUSH (NSS) 1 FLUSH IV (08:16)
[2024-09-18] MEDS: DESENEX/MITRAZOL/ZEASORB 1 APPLIC TOPICAL ×2 (08:16→19:41)
[2024-09-18] MEDS: LIPITOR 40 MG PO (08:16)
[2024-09-18] MEDS: LOW STRENGTH ASPIRIN 81 MG PO (08:16)
[2024-09-18] MEDS: MAGNESIUM OXIDE 500 MG PO ×2 (08:17→19:39)
[2024-09-18] MEDS: CYMBALTA DELAYED RELEASE 60 MG PO (08:17)
[2024-09-18] MEDS: PACERONE 200 MG PO ×3 (08:17→22:46)
[2024-09-18] MEDS: LOPRESSOR 25 MG PO ×2 (08:17→19:39)
[2024-09-18] MEDS: SENOKOT-S 1 TABLET PO ×2 (08:17→19:40)
[2024-09-18] MEDS: BUMEX 2 MG IV (08:29)
[2024-09-18] MEDS: ZAROXOLYN 2.5 MG PO (08:29)
[2024-09-18] MEDS: NSS IV (09:03)
--- NOTE | 2024-09-18 11:02 | CM ---
Chart reviewed. Patient is independent of ADLS, lives with his in a [address], 1 [facility], ambulates occasional with a SPC. Plan is for the patient to return home with CT Transitional RN. CM to follow
--- NOTE | 2024-09-18 12:46 | PTCARENOTE ---
Pt. reassessed. NSR with first degree AVB. With rates in 70s. BP 115/61. POX 95% on RA. Pt. assisted to bed. RIJ cordis D/C per order hemostasis achieved. TEDs applied. No other acute changes from previous assessment.
--- NOTE | 2024-09-18 14:17 | W.PN.CARDCBS ---
Today's Communication / Plan
-
diurese
OAC when surgically safe
Impression / Plan
-
Primary Cardiology: Dr. Nathaniel Gonzalez
PCP: Dr. Song Turner
IMPRESSION:
-Ascending aortic aneurysm
S/p hemiarch aortic valve replacement, aortic valve repair with resuspension of the valve at the commissure, surgical Maze and [place] clip 09/15/24
-Paroxysmal atrial fibrillation
-Chronic OAC with eliquis
-Hypertension
-Hyperlipidemia
-Asthma
-Liver fibrosis stage 1-2
-Morbid obesity
-Obstructive sleep apnea
-06/11/2024: Echo: LV: Normal size and function. EF 55-60%. Atrial fibrillation. RV: Normal, LA: Normal, RA: Normal, MV: Trace MR, AV: Mild AI, TV: Mild TR with estimated PAP 20-25 mmHg
-07/28/2024: CT chest: Fusiform dilation of the ascending thoracic aorta measuring 5.5 cm
-09/10/2024: Coronary angiography: Nonobstructive CADz
RECOMMENDATIONS:
Doing well postop
Remains in sinus rhythm
I do agree that he is volume overloaded and agree with IV diuresis. I suspect he will need significant diuresis based upon lower extremity exam.
We will follow with you
Oral anticoagulation for his AF when surgically ready to start....
Progress Note - Healthcare Representative
Subjective
Date of Service: September 18, 2024
feels well
Objective
Labs:
09/18/24 04:04
09/18/24 04:04
Labs
Hgb 11.1 g/dL (13.0-18.0) L 09/18/24 04:04
Hct 32.6 % (39.0-52.0) L 09/18/24 04:04
Plt Count 176 10^3/uL (130-400) D 09/18/24 04:04
PT 18.6 Sec (11.4-14.6) H 09/15/24 13:11
INR 1.52 09/15/24 13:11
APTT 33.4 Sec (23.4-35.0) 09/15/24 13:11
Sodium 134 mmol/L (135-145) L 09/18/24 04:04
Potassium 4.0 mmol/L (3.5-5.1) 09/18/24 04:04
BUN 20 mg/dl (9-20) 09/18/24 04:04
Creatinine 0.6 mg/dL (0.7-1.3) L 09/18/24 04:04
Glucose 112 mg/dl (70-99) H 09/18/24 04:04
Vital Signs and I&O:
Vital Signs
Temp Pulse Resp BP Pulse Ox
97.7 F 76 18 115/61 95
09/18/24 12:41 09/18/24 12:20 09/18/24 12:41 09/18/24 12:20 09/18/24 12:41
Vital Signs
Temp Pulse Resp BP Pulse Ox
97.7 F 76 18 115/61 95
09/18/24 12:41 09/18/24 12:20 09/18/24 12:41 09/18/24 12:20 09/18/24 12:41
Intake & Output
09/16/24 09/17/24 09/18/24 09/19/24
06:59 06:59 06:59 06:59
Intake Total 1479.9 / 1517.3 1928.2 / 1928.2 880 / 880 240 / 240
Output Total 2130 / 2195 2515 / 2515 2420 / 2420 2024
Balance -650.1 / -677.7 -586.8 / -586.8 -1540 / -1540 -1785 / -1785
Physical Exam
Physical Exam
sternum cdi
cor regular no m
lungs ctab
abd soft nt nd
2+ ext edema
aao x 3
non focal neurologically
[2024-09-18] MEDS: FLEXERIL 5 MG PO (16:33)
--- NOTE | 2024-09-18 16:37 | PTCARENOTE ---
Assessed pt. walked to nurses station and back to room. Complaining of chest tightness while ambulating. Notified CT SPD MANAGER, Tonya. EKG obtained. Administered 5mg PO cyclobenzaprine for muscle spasms. Pt. HR 83, BP 115/70, T 97.8, POX 95.
--- NOTE | 2024-09-18 19:30 | PTCARENOTE ---
assumed care of patient @ 1900. received pt sitting in chair, AOX3. VSS on RA. SR with long QT and 1st degree AVB. weak pulses, +2 edema. lungs clear, diminished on room air, pt is PERRY. wears cpap at night. belly round, obese. tolerating diet,
voiding in bathroom. Sternal inscision CDI ARTURO. L hand PIV patent. pt assisted to walk 100 [address] and then assisted into bed. resting comfortably with call friedman within reach .
[2024-09-18] MEDS: ROXICODONE 5 MG PO (19:40)
[2024-09-18] MEDS: DILAUDID 0.25 MG IV (22:47)
--- NOTE | 2024-09-18 23:08 | PTCARENOTE ---
pt c/o back pain, unable to get Flexeril or gladys yet. CTPA says ok to give 0.25 of dilaudid
[2024-09-19] VITALS (9 sets, daily range): BP systolic 97–155; BP diastolic 62–82; PULSE 2–74; O2SAT 98–99; BMI 48.3
--- NOTE | 2024-09-19 04:00 | PTCARENOTE ---
pt resting comfortably, no change in assessment .
[2024-09-19 04:13] LABS: Hematocrit 33.4 % (39.0-52.0); Hemoglobin 11.3 g/dL (13.0-18.0); Mean Corp Hgb Conc. 33.8 g/dL (33.0-37.0); Mean Corpuscular Hgb 28.9 pg (27.0-31.0); Mean Corpuscular Volume 85.4 fL (80.0-94.0); Mean Platelet Volume 10.2 fL (7.4-10.4); Platelet Count 199 10^3/uL (130-400); Red Blood Cell Count 3.91 10^6/uL (4.70-6.10); Red Cell Dist. Width 14.2 % (11.5-14.5); White Blood Cell Count 12.4 10^3/uL (4.8-10.8)
[2024-09-19 04:42] LABS: Blood Urea Nitrogen 19 mg/dl (9-20); Calcium 8.4 mg/dl (8.4-10.2); Carbon Dioxide 37 mmol/L (22-30); Chloride 88 mmol/L (98-107); Estimated Creatinine Clearance > 125 ml/min; Glucose 120 mg/dl (70-99); Magnesium 2.1 mg/dl (1.6-2.3); Potassium 3.7 mmol/L (3.5-5.1); Sodium 132 mmol/L (135-145); eGFR > 60.00
--- NOTE | 2024-09-19 06:18 | W.PN.CT ---
Today's Communication / Plan
-
-pod #4
-no issues overnight, c/o chronic back pain, says that overall feels better
-in nsr 70s. Plans to restart Eliquis today for paf
-diuresed well with Bumex 2 mg and Zaroxolyn on 09/18 (UO 1000/3775 in 12/24 hrs). Wt today is 336 lbs, which is 6 lbs down from 09/18 and same as preop
-bicarb is elevated 37- ? hold off diuretic
-repleted K this am
-current meds (ASA, Lipitor, Lopressor 25 bid, Amio, iv iron, Protonix, sq Heparin).
-DVT prophylaxis with sq Heparin (will stop after restarting Eliquis on Sun)
-encourage IS, OOB, ambulate
Assessment / Plan
-
Assessment:
-S/P Standard sternotomy/Hemiarch aortic replacement/Aortic valve repair (resuspension of aortic valve at the commissures, debridement of aortic valve nodularity at the NCC, and plication of NCC with 5-0 prolene)/ Surgical open left atrial maze
[combination of RF and cryo ablation]/Left atrial appendage exclusion [40 mm clip], by Dr. Moreno, 09/15/24, pod#4
-Ascending aortic aneurysm, 5.7 cm
-Mild aortic valve insufficiency
-Mild TR
-Paroxysmal atrial fibrillation S/p Cardioversion x 3 on 05/19/24 (unsuccessful)
-Morbidly obese with a BMI of 48
-Hypertension
-Hyperlipidemia
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
-Hepatitis C status post antiviral treatment
-Spinal stenosis with concomitant orthopedic issues
-Chronic back pain
-Neuropathy
-Arthritis
-XAVIER (arrangement for CPAP as an outpatient by Pulmonary)
-Hx of tobacco use (1 ppd x 13 yrs, quit 15 years ago)
-Current marijuana use (smokes 1 once/month)
-GERD
-Hx GI bleed S/P Colonoscopy, 03/02/23 (internal hemorrhoids, otherwise unremarkable)
-S/p colonoscopy with polypectomy, 12/12/18
-S/p colonoscopy with polypectomy, 10/04/2017
-S/P EGD, 10/04/2017 (unremarkable)
-S/P Laminectomy x 3
-S/p B/L knee replacements
-Chronic leg edema, wears TEDs
-Acute intraop/postop blood loss/Anemia (stable scavenged cell saver and 800 cc whole blood intraop)
-Intraop thrombocytopenia (transfused 2{5} pks of plts)
-Acute postop atelectasis
-Acute postop hypovolemia with subsequent hypervolemia
-Postop hyperkalemia, 5.3- improved with Lokelma
Discussed patient care with: Nursing and Care Team
Subjective
Procedure
S/P Standard sternotomy/Hemiarch aortic replacement/Aortic valve repair (resuspension of aortic valve at the commissures, debridement of aortic valve nodularity at the NCC, and plication of NCC with 5-0 prolene)/ Surgical open left atrial maze
[combination of RF and cryo ablation]/Left atrial appendage exclusion [40 mm clip], by Dr. Moreno, 09/15/24
-
Date of Service: September 19, 2024
Objective Data
-
Lab Results
09/19/24 04:04
09/19/24 04:04
PT 18.6 Sec (11.4-14.6) H 09/15/24 13:11
INR 1.52 09/15/24 13:11
APTT 33.4 Sec (23.4-35.0) 09/15/24 13:11
Vital Signs
Vital Signs
Temp Pulse Resp BP Pulse Ox
98.9 F 70 16 155/72 95
09/19/24 04:00 09/19/24 05:00 09/19/24 04:00 09/19/24 04:06 09/19/24 04:00
CT Intake/Output/Weight
09/18/24 09/18/24 09/19/24
06:59 18:59 06:59
Intake Total 100 / 880 240 / 240
Output Total 850 / 2420 2775 / 3775 1000 / 3775
Balance -750 / -1540 -2535 / -3535 -1000 / -3535
SaO2: 95
[2024-09-19] MEDS: KCL 40 MEQ PO (06:39)
[2024-09-19] MEDS: TYLENOL 1000 MG PO ×3 (06:39→20:12)
--- NOTE | 2024-09-19 08:00 | PTCARENOTE ---
received pt from previous rn. pt AAOx4, ambulates in room has unsteady gait, Pt NSR w/ first degree AVB and prolonged QT per tele monitor, HR 70s, +2 edema, +pulses, pox 95% lungs clear, diminished on room air, pt is PERRY. +bs round, obese, voids
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 CT dressing c/d/i. PIV intact, plan of care discussed and questions encouraged.
[2024-09-19] MEDS: LOW STRENGTH ASPIRIN 81 MG PO (08:31)
[2024-09-19] MEDS: PROTONIX 40 MG PO (08:31)
[2024-09-19] MEDS: MAGNESIUM OXIDE 500 MG PO ×2 (08:31→20:13)
[2024-09-19] MEDS: CYMBALTA DELAYED RELEASE 60 MG PO (08:31)
[2024-09-19] MEDS: NEURONTIN 300 MG PO ×3 (08:32→20:13)
[2024-09-19] MEDS: SENOKOT-S 1 TABLET PO ×2 (08:32→20:13)
[2024-09-19] MEDS: PACERONE 200 MG PO ×3 (08:32→20:12)
[2024-09-19] MEDS: LIDOCAINE 4% PATCH 1 PATCH TOPICAL (08:33)
[2024-09-19] MEDS: LIPITOR 40 MG PO (08:33)
[2024-09-19] MEDS: DESENEX/MITRAZOL/ZEASORB 1 APPLIC TOPICAL ×2 (08:34→20:12)
[2024-09-19] MEDS: BACTROBAN 2% OINTMENT 1 APPLIC NASAL (08:34)
[2024-09-19] MEDS: LOPRESSOR 25 MG PO ×2 (08:46→20:12)
[2024-09-19] MEDS: DIAMOX 250 MG PO (08:46)
[2024-09-19] MEDS: ELIQUIS 5 MG PO ×2 (08:46→20:14)
[2024-09-19] MEDS: HEPARIN 5000 UNITS SC (08:57)
[2024-09-19] MEDS: MYLICON 80 MG PO (09:40)
--- NOTE | 2024-09-19 10:34 | CM ---
Chart reviewed. Patient is independent of ADLS, lives with his in a [address], 1 [facility], occasionally uses a SPC. Plan is for the patient to return home with CT Transitional RN. CM to follow
[2024-09-19] MEDS: NSS IV (10:42)
--- NOTE | 2024-09-19 11:06 | W.PN.CARDCBS ---
Today's Communication / Plan
-
Would switch to po Lasix
in sinus
Cont Amio/Metoprolol
Impression / Plan
-
Primary Cardiology: Dr. Nathaniel Gonzalez
PCP: Dr. Song Turner
IMPRESSION:
-Ascending aortic aneurysm
S/p hemiarch aortic valve replacement, aortic valve repair with resuspension of the valve at the commissure, surgical Maze and [place] clip 09/15/24
-Paroxysmal atrial fibrillation
-Chronic OAC with eliquis
-Hypertension
-Hyperlipidemia
-Asthma
-Liver fibrosis stage 1-2
-Morbid obesity
-Obstructive sleep apnea
-06/11/2024: Echo: LV: Normal size and function. EF 55-60%. Atrial fibrillation. RV: Normal, LA: Normal, RA: Normal, MV: Trace MR, AV: Mild AI, TV: Mild TR with estimated PAP 20-25 mmHg
-07/28/2024: CT chest: Fusiform dilation of the ascending thoracic aorta measuring 5.5 cm
-09/10/2024: Coronary angiography: Nonobstructive CADz
RECOMMENDATIONS:
Remains stable
Remains in sinus rhythm
he did diurese with IV lasix. Creat stable. Bicarb up some. But would cont po Lasix
Cont Eliquis
Progress Note - Rod Straightener
Subjective
Date of Service: September 19, 2024
feeling better. Still a bit dyspnic
Objective
Labs:
09/19/24 04:04
09/19/24 04:04
Labs
Hgb 11.3 g/dL (13.0-18.0) L 09/19/24 04:04
Hct 33.4 % (39.0-52.0) L 09/19/24 04:04
Plt Count 199 10^3/uL (130-400) 09/19/24 04:04
PT 18.6 Sec (11.4-14.6) H 09/15/24 13:11
INR 1.52 09/15/24 13:11
APTT 33.4 Sec (23.4-35.0) 09/15/24 13:11
Sodium 132 mmol/L (135-145) L 09/19/24 04:04
Potassium 3.7 mmol/L (3.5-5.1) 09/19/24 04:04
BUN 19 mg/dl (9-20) 09/19/24 04:04
Creatinine 0.6 mg/dL (0.7-1.3) L 09/19/24 04:04
Glucose 120 mg/dl (70-99) H 09/19/24 04:04
Vital Signs and I&O:
Vital Signs
Temp Pulse Resp BP Pulse Ox
97.5 F 71 20 115/62 97
09/19/24 08:00 09/19/24 08:19 09/19/24 08:00 09/19/24 08:19 09/19/24 10:33
Vital Signs
Temp Pulse Resp BP Pulse Ox
97.5 F 71 20 115/62 97
09/19/24 08:00 09/19/24 08:19 09/19/24 08:00 09/19/24 08:19 09/19/24 10:33
Intake & Output
09/17/24 09/18/24 09/19/24 09/20/24
06:59 06:59 06:59 06:59
Intake Total 1928.2 / 1928.2 880 / 880 240 / 240 100 / 100
Output Total 2515 / 2515 2420 / 2420 3775 / 3775 500 / 500
Balance -586.8 / -586.8 -1540 / -1540 -3535 / -3535 -400 / -400
Physical Exam
Physical Exam
GEN: No distress, awake, Ox3
HEENT: supple, anicteric, mmm
LUNGS: CTA, no wheezes/rales
CV: Reg, S1/S2, 1/6 syst LSB, no murmur
ABD: soft, BS+, NT/ND
EXT: No edema
NEURO: Gross non-focal
SKIN: sternotomy
--- NOTE | 2024-09-19 12:41 | PTCARENOTE ---
VSS, pt NSR w/ first degree AVB per tele monitor, HR 70s Assessment remains unchanged
--- NOTE | 2024-09-19 16:32 | PTCARENOTE ---
VSS, NSR per tele monitor, pt ambulating in hallway with 1 person assistance for unsteady gait, assessment remains unchanged otherwise
--- NOTE | 2024-09-19 19:00 | PTCARENOTE ---
assumed care of patient @ 1900. received pt laying in bed, AOx3. VSS on RA. NSR with 1st degree and long QT. +p +1 anasarca. lungs clear, diminished satting mid 90s on room air. wears CPAP HS with 2L. PERRY. Belly round, obese, passing gas. voiding
clear yellow urine. Surgical sites intact, PIV intact. resting comfortably in bed with call friedman within reach .
[2024-09-19] MEDS: FLEXERIL 5 MG PO (20:13)
[2024-09-19] MEDS: ROXICODONE 5 MG PO (20:13)
[2024-09-19] MEDS: KCL 20 MEQ PO (22:36)
[2024-09-20] VITALS (7 sets, daily range): BP systolic 106–153; BP diastolic 59–97; PULSE 76; O2SAT 93–98; BMI 47.3
--- NOTE | 2024-09-20 | PTCARENOTE ---
no change in assessment
[2024-09-20] MEDS: ROXICODONE 5 MG PO (01:19)
[2024-09-20 03:44] LABS: Hematocrit 33.1 % (39.0-52.0); Hemoglobin 11.1 g/dL (13.0-18.0); Mean Corp Hgb Conc. 33.5 g/dL (33.0-37.0); Mean Corpuscular Hgb 28.4 pg (27.0-31.0); Mean Corpuscular Volume 84.7 fL (80.0-94.0); Platelet Count 228 10^3/uL (130-400); Red Blood Cell Count 3.91 10^6/uL (4.70-6.10); Red Cell Dist. Width 14.1 % (11.5-14.5); White Blood Cell Count 11.4 10^3/uL (4.8-10.8)
--- NOTE | 2024-09-20 03:48 | PTCARENOTE ---
pt call friedman system not working, maintenance unable to fix, transferred to room 9417
[2024-09-20 03:57] LABS: Blood Urea Nitrogen 16 mg/dl (9-20); Calcium 8.7 mg/dl (8.4-10.2); Carbon Dioxide 30 mmol/L (22-30); Chloride 91 mmol/L (98-107); Estimated Creatinine Clearance > 125 ml/min; Glucose 104 mg/dl (70-99); Magnesium 2.1 mg/dl (1.6-2.3); Potassium 3.4 mmol/L (3.5-5.1); Sodium 131 mmol/L (135-145); eGFR > 60.00
[2024-09-20] MEDS: KCL 40 MEQ PO ×3 (05:44→14:08)
[2024-09-20] MEDS: LASIX 40 MG IV (05:46)
[2024-09-20] MEDS: TYLENOL 1000 MG PO ×2 (05:59→13:39)
--- NOTE | 2024-09-20 06:37 | W.PN.CT ---
Today's Communication / Plan
-
-No major issues overnight. Hemodynamically and neurologically intact
-Cont. Eliquis for postop PAF/ d/c'd SQ heparin for DVT prophylaxis
-Cont. diuresis and replete K, 3.4 today
-Monitor hyponatremia, 131, should improve with diuresis and fluid restriction. F/u BMP @ 11 AM
-OOB into chair/Ambulate
-Consider repeat echo to re-assess AV Repair/EF
-D/C home later today
Assessment / Plan
-
Assessment:
-S/P Standard sternotomy/Hemiarch aortic replacement/Aortic valve repair (resuspension of aortic valve at the commissures, debridement of aortic valve nodularity at the NCC, and plication of NCC with 5-0 prolene)/ Surgical open left atrial maze
[combination of RF and cryo ablation]/Left atrial appendage exclusion [40 mm clip], by Dr. Moreno, 09/15/24, pod#5
-Ascending aortic aneurysm, 5.7 cm
-Mild aortic valve insufficiency
-Mild TR
-Paroxysmal atrial fibrillation S/p Cardioversion x 3 on 05/19/24 (unsuccessful)
-Morbidly obese with a BMI of 48
-Hypertension
-Hyperlipidemia
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
-Hepatitis C status post antiviral treatment
-Spinal stenosis with concomitant orthopedic issues
-Chronic back pain
-Neuropathy
-Arthritis
-XAVIER (arrangement for CPAP as an outpatient by Pulmonary)
-Hx of tobacco use (1 ppd x 13 yrs, quit 15 years ago)
-Current marijuana use (smokes 1 once/month)
-GERD
-Hx GI bleed S/P Colonoscopy, 03/02/23 (internal hemorrhoids, otherwise unremarkable)
-S/p colonoscopy with polypectomy, 12/12/18
-S/p colonoscopy with polypectomy, 10/04/2017
-S/P EGD, 10/04/2017 (unremarkable)
-S/P Laminectomy x 3
-S/p B/L knee replacements
-Chronic leg edema, wears TEDs
-Acute intraop/postop blood loss/Anemia (stable scavenged cell saver and 800 cc whole blood intraop)
-Intraop thrombocytopenia (transfused 2{5} pks of plts)
-Acute postop atelectasis
-Acute postop hypovolemia with subsequent hypervolemia
-Postop hyperkalemia, 5.3- improved with Lokelma
Discussed patient care with: Cardiology, Nursing, Respiratory Therapy, Pharmacy and Care Team
Subjective
Procedure
S/P Standard sternotomy/Hemiarch aortic replacement/Aortic valve repair (resuspension of aortic valve at the commissures, debridement of aortic valve nodularity at the NCC, and plication of NCC with 5-0 prolene)/ Surgical open left atrial maze
[combination of RF and cryo ablation]/Left atrial appendage exclusion [40 mm clip], by Dr. Moreno, 09/15/24
-
Date of Service: September 20, 2024
C/O mild incisional pain and chronic back pain, otherwise feels well
Objective Data
-
Lab Results
09/20/24 03:29
PT 18.6 Sec (11.4-14.6) H 09/15/24 13:11
INR 1.52 09/15/24 13:11
APTT 33.4 Sec (23.4-35.0) 09/15/24 13:11
Vital Signs
Vital Signs
Temp Pulse Resp BP Pulse Ox
98.9 F 71 16 114/67 96
09/20/24 00:00 09/20/24 03:31 09/20/24 03:48 09/20/24 03:31 09/20/24 03:[address] Intake/Output/Weight
12/20/24 12/20/24 12/21/24
06:59 18:59 06:59
Intake Total 100 / 580 480 / 580
Output Total 1000 / 3775 1950 / 2750 800 / 2750
Balance -1000 / -3535 -1850 / -2170 -320 / -2170
SaO2: 96 (RA)
Physical Exam
-
General: Awake, Oriented and AOx3
Cardiovascular: Regular rate & rhythm, No Murmurs, No Rub and No Gallop
Respiratory: Decreased Breath Sounds
Sternum: Stable
Incision: Clean, Dry, Intact and Dressing Intact
Extremities: Other (+trace edema)
Data Reviewed
-
Lab Results: Results Reviewed
Medications: Active Meds Reviewed
Chest X-Ray: Report Reviewed and Image Reviewed
ECG: Report Reviewed and Image Reviewed
[2024-09-20] MEDS: NEURONTIN 300 MG PO (08:53)
[2024-09-20] MEDS: CYMBALTA DELAYED RELEASE 60 MG PO (08:53)
[2024-09-20] MEDS: LIPITOR 40 MG PO (08:53)
[2024-09-20] MEDS: MAGNESIUM OXIDE 500 MG PO (08:54)
[2024-09-20] MEDS: PROTONIX 40 MG PO (08:55)
[2024-09-20] MEDS: ELIQUIS 5 MG PO (08:55)
[2024-09-20] MEDS: SENOKOT-S 1 TABLET PO (08:56)
[2024-09-20] MEDS: LOPRESSOR 25 MG PO (08:56)
[2024-09-20] MEDS: LOW STRENGTH ASPIRIN 81 MG PO (08:56)
[2024-09-20] MEDS: PACERONE 200 MG PO (08:57)
[2024-09-20] MEDS: DESENEX/MITRAZOL/ZEASORB 1 APPLIC TOPICAL (08:58)
[2024-09-20] MEDS: NSS IV (08:59)
[2024-09-20] MEDS: LIDOCAINE 4% PATCH 1 PATCH TOPICAL (08:59)
--- NOTE | 2024-09-20 09:49 | PTCARENOTE ---
VS captured for previous rn.
received pt from previous rn. pt AAOx4, Pt NSR w/ first degree AVB and prolonged QT per tele monitor, HR 80s, +2 edema, +pulses, pox 91% lungs clear, diminished on room air, pt is PERRY. +bs round, obese, voids spontaneously, Sternal incision C/D/I
ARTURO. CT dressing c/d/i. PIV intact, plan of care discussed and questions encouraged.
--- NOTE | 2024-09-20 10:58 | CARDSERVLU ---
Echocardiogram with Lumason completed after protocol screening completed. Allergies verified.
Patent IV site: _L HAND__
IV site flushed with 0.9% NaCl pre and post administration.
Diluted bolus method utilized to enhance visualization of ventricular eduardo.
Total volume given: _4___ mL
Patient tolerated all procedures well without complications.
[2024-09-20 12:00] LABS: Blood Urea Nitrogen 16 mg/dl (9-20); Calcium 8.4 mg/dl (8.4-10.2); Carbon Dioxide 31 mmol/L (22-30); Chloride 91 mmol/L (98-107); Estimated Creatinine Clearance > 125 ml/min; Glucose 96 mg/dl (70-99); Potassium 3.7 mmol/L (3.5-5.1); Sodium 130 mmol/L (135-145); eGFR > 60.00
--- NOTE | 2024-09-20 14:48 | W.[place]-PDMP ---
[place]-PD[place]
-
Checked the [place]- Prescription Drug Monitoring Program website, no red flags identified; safe to proceed with prescription.
--- NOTE | 2024-09-20 16:00 | PTCARENOTE ---
dressings, tele monitor and IV line removed. Discharge instructions, follow up appointments and medication list reviewed w the pt and questions encouraged.
--- NOTE | 2024-09-20 18:57 | W.DCSUMMARY ---
Discharge Summary
Discharge Data
Date of Admission: 09/15/24
Date of Discharge: 09/20/24
Total time spent discharging patient (in min): 45
-
Pending Results: No
Hospital Course
Primary care physician:
Song Noriega
Outpatient graduate recruiter:
Dr. Nathaniel Valentin MD.
Inpatient consultants:
[facility]
Procedures:
1. Hemiarch aortic replacement with moderate hypothermic circulatory arrest with selective antegrade cerebral perfusion
2. Aortic valve repair
3. Surgical open left atrial maze (combination of radiofrequency and cryoablation)
4. Left atrial appendage exclusion with number [address] Cisco Moreno MD on 09/15/2024
Primary Diagnosis:
1. Ascending aortic aneurysm, 5.7 cm
2. Mild aortic valve insufficiency
3. Paroxysmal atrial fibrillation
4. Morbidly obese with a BMI of 48
5. Hypertension
6. Hyperlipidemia
7. 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
8. Hepatitis C status post antiviral treatment
9. Spinal stenosis with concomitant orthopedic issues
10. Neuropathy
11. Obstructive sleep apnea
12. History of smoking, quit 15 years ago
13. Gastroesophageal reflux disease
14. Mild asthma
15. History of arthritis
16. Former smoker/tobacco abuse
17. Colon polyps with adenoma and hemorrhoid bleeding
18. Insomnia
19. Bilateral knee replacements
20. History of neuropathy
21. History of multiple laminectomies
22. Acute IntraOp/postop blood loss anemia
23. IntraOp thrombocytopenia requiring transfusion of 2 packs of platlets
24. Acute postoperative atelectasis
25. Acute postoperative hypovolemia with subsequent hypervolemia
26. Postoperative hyperkalemia, 5.3�improved with Lokelma.
Secondary Diagnoses:
Same as the above
HPI:
Patient is a 64-year-old male with multiple comorbidities being worked up for ablation, and was found to have a significant ascending aortic aneurysm 5.5 cm. Follow-up CT angio with centerline measurements demonstrated a maximum diameter of 5.7
with some tapering toward the innominate base. His root was preserved, his sinotubular junction was slightly splayed, and he had mild to moderate aortic valve insufficiency. Patient was seen as an outpatient in consultation by attending physician.
Given the size of his aneurysm as well as his paroxysmal atrial fibrillation, he was offered hemiarch resection, repair of aortic valve, and maze for management of his atrial fibrillation. He excepted, and was admitted to [facility]
electively to undergo the procedure described above.
Hospital course:
Patient tolerated the procedure well. He remained intubated. He was transported from the operating room to the cardiovascular intensive care unit where he underwent his postoperative recovery. Patient was extubated in routine fashion on
postoperative day 0 at 1818 to [facility]. Dobutamine was weaned to 1, his cardiac index was greater than 2 with systolic blood pressure goals of 90-110. Patient had a brief episode of atrial tachycardia less than a minute and was treated with an amnio
bolus and drip. Patient was progressed in routine fashion. Postoperative course was negative for any complications or acute events. On postoperative day 1 he was weaned off IV drips and delined. He was started on aspirin, beta-lupis and
subcutaneous heparin for DVT prophylaxis given his history of A-fib. He underwent gentle diuresis with Lasix 40 mg IV x 1. On postoperative day #2 his beta-blockade was increased to 25 mg twice daily. Pacing wires were removed and his chest tubes
were later DC'd without issues. Gilmore catheter was discontinued and the patient continued diuresis with 40 mg of IV Lasix. Postoperative day #3 he was aggressively diuresed with Bumex 2 mg plus Zaroxolyn for over 2 L of urine output. His Cordis
was removed and he continued aggressive cardiac rehab. Postoperative day #4 his Eliquis was resumed. He was diuresed with Diamox for a CO2 of 37 with nearly 2 L of urine output. On postoperative day #5 echocardiogram was performed showing an
ejection fraction of 55 to 60%, aortic valve functioning normally with no aortic stenosis or insufficiency. He was diuresed with Lasix 40 mg IV x 1. Discussion was had with attending physician and he was medically cleared to be discharged to home
on postoperative day #5.
Home medication changes:
See below
Discharge Plan
-
Patient Disposition: Home (Routine Discharge)
Discharge Diagnosis/Procedures: ascending aortic aneurysm/ AScending aorta & hemiarch #28 tube graft, aortic valve repair, MAZE, [place] clip
Condition: Fair
Diet: Low Fat and Low Sodium
Activity: No strenuous activity
Driving Restrictions: Not until seen by your Dr
Bathing Restrictions: OK to Shower
Other Services: Cardiac Rehab
Specialty Instructions: Weigh Daily- Call MD for wt gain/loss 3 lbs overnight/5 lbs in 1 week
Activity Restrictions/Additional Instructions:
ACTIVITY:
-No strenuous activity: no heavy lifting, pushing, pulling anything over 15 pounds for one month
-continue to use stairs as tolerated
DRIVING RESTRICTIONS:
-No driving for one month or until approved by your surgeon
WOUND CARE:
-Shower daily. Use soap & water.
-No lotions, creams or powders on incision area.
DIET:
-continue a low fat/low cholesterol diet.
-IF you are diabetic, continue carb controlled diet.
CARDIAC REHAB:
-Please make appointment to start in 5-6 weeks with your local hospital program. (See Cardiac Rehabilitation Discharge Booklet).
SPECIALTY INSTRUCTIONS:
-Weigh yourself daily. Call your physician for any weight gain/loss of 3 lbs overnight or 5 lbs in one week.
-REPORT any clicking noise or uneven appearance of your sternum to your surgeon immediately.
-If you smoke, you are instructed to quit. The [place] smoking hotline phone number is [phone]
Referrals:
Stephane Estrella NP [Other] - 10/27/24 12:40 pm
CT Transitional Care Nurse [Outside] (The Cardiothoracic Transitional Care Nurse will call you to set up a visit in 1-2 days.)
[facility]. Cardiac Rehab [Outside] - 10/24/24 9:30 am
(Cardiac Rehab Orientation appointment and First Exercise appointment is on 10/24/24 at 9:30 am.
The Cardiac Rehab gym is located on the first floor of the [facility].)
Ray Turner CRNP [Family Provider] -
Cisco Moreno MD [Active] - 10/16/24 1:30 pm
Prescriptions:
New
duloxetine 60 mg Capsule,Delayed Release(Dr/Ec)
60 mg PO DAILY Qty: 30 1RF
acetaminophen 325 mg Tablet
650 mg PO Q4HPRN PRN (Reason: mild pain,headache,temp >101F ) Qty: 0 0RF
metoprolol tartrate 25 mg Tablet
25 mg PO Q12 Qty: 60 1RF
aspirin 81 mg Tablet,Chewable
81 mg PO DAILY Qty: 0 0RF
Rx Instructions:
Please purchase over the counter
oxycodone 5 mg Tablet
5 mg PO Q6HPRN PRN (Reason: moderate-severe pain) Qty: 30 0RF
Rx Instructions:
Ongoing pain control. Attending Dr. Cisco Moreno MD
pantoprazole 40 mg Tablet,Delayed Release (Dr/Ec)
40 mg PO DAILY Qty: 30 1RF
Rx Instructions:
GI prophylaxis with aspirin and Eliquis. Obtain further refills from PCP/cardiology
amiodarone 200 mg Tablet
200 mg PO BID Qty: 90 0RF
Rx Instructions:
Take 200 mg(1tab) BID x14 days, then take 200 mg(1 tab) daily until seen by Cardiology
furosemide [Lasix] 40 mg tablet
40 mg PO DAILY Qty: 5 0RF
Rx Instructions:
Take Lasix 40 mg daily x5 days and then stop unless instructed otherwise
potassium chloride 20 mEq tablet extended release
20 meq PO DAILY Qty: 5 0RF
Rx Instructions:
Take potassium chloride 20 meq daily x 5 days with Lasix then stop unless instructed otherwise
Continued
trazodone 100 mg Tablet
200 mg PO HSPRN PRN (Reason: sleep)
Eliquis 5 mg Tablet
5 mg PO BID
Wegovy 1 mg/0.5 mL Pen Injector
1 mg SC QWEEK
Rx Instructions:
stopped ~17 days ago
atorvastatin 40 mg tablet
40 mg PO DAILY Qty: 90 3RF
gabapentin 600 mg Tablet
600 mg PO DAILY Qty: 0 0RF
docusate sodium [Stool Softener] 100 mg Capsule
100 mg PO BID
Discontinued
diltiazem HCl 240 mg Capsule,Extended Release 24 Hr
240 mg PO DAILY
duloxetine 60 mg Capsule,Delayed Release(Dr/Ec)
60 mg PO DAILYPRN PRN (Reason: anxiety)
Milk Thistle Turmeric
1 dose PO DAILY
Medical Cannibus
1 dose inhalation PRN PRN (Reason: pain)
ibuprofen [Advil] 200 mg Tablet
400 mg PO Q6H PRN (Reason: pain)
metoprolol succinate 25 mg tablet extended release 24 hr
25 mg PO DAILY
Discharge Orders:
Discharge Patient (As Directed); Ordered 09/20/24
Ordered By: Ene Velasquez
Care Plan Goals
Care Plan Goals:
Problem: Readiness for enhanced knowledge related to diagnosis and treatment plan
Goal: Understand your diagnosis and treatment plan needs, including medications if applicable.
Instructions: Know your diagnosis, underlying causes and treatment plan options, including medications if applicable. Consult with your health care team to learn about your diagnosis and treatment plan, including medications if applicable.
Discharge Date and Time
Discharge Date/Time: 09/20/24 16:20
Print Language: AUSTRALIAN
== END 2024-09-20 16:20 | disposition home or self-care (01) | DRG 220 ==
LOC: CVICU 05:05
PROVIDERS: Anesthesiology; Clinical Nurse Specialist Acute Care; ADMITTING PHYSICIAN Thoracic Surgery (Cardiothoracic Vascular Surgery); CONSULT PHYSICIAN Internal Medicine Critical Care Medicine; FAMILY PHYSICIAN Nurse Practitioner Family
PROC: 02RX0JZ Replacement of Thoracic Aorta, Ascending/Arch with Synthetic Substitute, Open Approach (ICD-10-PCS; 2024-09-15)
PROC: 02QF0ZZ Repair Aortic Valve, Open Approach (ICD-10-PCS; 2024-09-15)
PROC: 02580ZZ Destruction of Conduction Mechanism, Open Approach (ICD-10-PCS; 2024-09-15)
PROC: 5A09357 Assistance with Respiratory Ventilation, Less than 24 Consecutive Hours, Continuous Positive Airway Pressure (ICD-10-PCS; 2024-09-15)
PROC: 02L70CK Occlusion of Left Atrial Appendage with Extraluminal Device, Open Approach (ICD-10-PCS; 2024-09-15)
PROC: B24BZZ4 Ultrasonography of Heart with Aorta, Transesophageal (ICD-10-PCS; 2024-09-15)
PROC: 30233R1 Transfusion of Nonautologous Platelets into Peripheral Vein, Percutaneous Approach (ICD-10-PCS; 2024-09-15)
PROC: 5A1221Z Performance of Cardiac Output, Continuous (ICD-10-PCS; 2024-09-15)
DX: I71.21 Aneurysm of the ascending aorta, without rupture (principal); D62 Acute posthemorrhagic anemia; Z68.42 Body mass index [BMI] 45.0-49.9, adult; J98.11 Atelectasis; E87.1 Hypo-osmolality and hyponatremia; I35.1 Nonrheumatic aortic (valve) insufficiency; I48.0 Paroxysmal atrial fibrillation; E66.01 Morbid (severe) obesity due to excess calories; E78.5 Hyperlipidemia, unspecified; I10 Essential (primary) hypertension; B19.20 Unspecified viral hepatitis C without hepatic coma; K74.00 Hepatic fibrosis, unspecified; M48.00 Spinal stenosis, site unspecified; G62.9 Polyneuropathy, unspecified; K21.9 Gastro-esophageal reflux disease without esophagitis; G47.33 Obstructive sleep apnea (adult) (pediatric); R73.9 Hyperglycemia, unspecified; G89.29 Other chronic pain; M54.9 Dorsalgia, unspecified; J45.909 Unspecified asthma, uncomplicated; G47.00 Insomnia, unspecified; D69.59 Other secondary thrombocytopenia; E86.1 Hypovolemia; E87.70 Fluid overload, unspecified; E87.5 Hyperkalemia; I36.1 Nonrheumatic tricuspid (valve) insufficiency; R60.0 Localized edema; F12.90 Cannabis use, unspecified, uncomplicated; Z79.01 Long term (current) use of anticoagulants; Z79.899 Other long term (current) drug therapy; Z87.891 Personal history of nicotine dependence; Z82.49 Family history of ischemic heart disease and other diseases of the circulatory system
CPT/HCPCS: 88305; 36415; 71045; 71046; 80048; 80053; 80076; 81003; 82330; 82565; 82805; 82810; 82947; 82962; 83036; 83735; 84132; 84302; 84520; 85014; 85018; 85025; 85027; 85049; 85610; 85730; 86850; 86900; 86901; 86920; 87070; 90662; 93005; 93306; 93312; 93320; 93325; 93880; 94002; 94660; G0008; J2916; P9073; Q9950

== ENCOUNTER → 2024-10-22 10:15 | Outpatient (REF) | payer BC, SELFPAY ==
[2024-10-22 16:40] LABS: Blood Urea Nitrogen 16 mg/dl (9-20); Calcium 9.3 mg/dl (8.4-10.2); Carbon Dioxide 33 mmol/L (22-30); Chloride 97 mmol/L (98-107); Glucose 95 mg/dl (70-99); Potassium 4.7 mmol/L (3.5-5.1); Sodium 138 mmol/L (135-145); eGFR > 60.00
[2024-10-22 16:56] LABS: NT-proBNP 937 pg/ml
== END ==
LOC: HWLAB 10:15
PROVIDERS: ATTENDING PHYSICIAN Nurse Practitioner Family; REFERRING PHYSICIAN Internal Medicine
DX: R60.0 Localized edema (principal)
CPT/HCPCS: 36415; 80048; 83880

== ENCOUNTER 2024-12-07 11:46 | Emergency (ER) | payer BC, SELFPAY ==
[2024-12-07 11:50] VITALS: BP 161/79
--- NOTE | 2024-12-07 12:23 | ED.GENMED ---
History of Present Illness
<Uma Galvin PA-C - Last Filed: 12/07/24 21:26>
General
Chief Complaint: Nose Bleed
Source: patient
Exam Limitations: none
Time Seen by Provider: 12/07/24 12:23
Nursing documentation reviewed up to this point in time: agreed with
History of Present Illness
History of Present Illness:
This is a 64-year-old male with past medical history of AAA, A-fib on Eliquis, hypertension who presents emergency department today with concerns of bleeding from the right ear. Patient reports that this started around 4:30 AM this morning.
Patient states that he held pressure of the nasal ala for around 10 minutes and reports that this did not help. Patient states that the bleeding has since slowed. He states that he feels the blood trickling down the back of his throat. Patient
denies any trauma to the nose or face, denies any falls, he states that the bleeding happened spontaneously. He currently does not follow with an ENT. He denies any vomiting. He denies any chest pain or shortness of breath. He denies any syncopal
episodes.
Past History
<Uma Galvin PA-C - Last Filed: 12/07/24 21:26>
Past History
ED Past Medical History: None
ED Past Surgical History: Orthopedic
Social History
Tobacco: Non-smoker
Alcohol: Occasional
Drug: None
Personal:
Living: with family
Review of Systems
<Uma Galvin PA-C - Last Filed: 12/07/24 21:26>
Review of Systems
All Other Systems: ROS reviewed and negative except as documented in HPI and ROS
Phy Exam
<Uma Galvin PA-C - Last Filed: 12/07/24 21:26>
Physical Exam
Physical Exam:
General: Patient is well appearing and in no acute distress; non-toxic
Skin: Warm and dry, no rashes or lesions
Head: Normocephalic, atraumatic
Eyes: Sclera non-icteric. EOMs intact.
Throat: Uvula midline. Blood noted to right pharynx.
Nose: No septal hematoma. Minimal, slow bleeding noted from the right nare.
Cardiac: Regular rate
Pulm: Normal respiratory effort
Neuro: CN II-XII intact, no focal neurologic deficits.
Psychiatric: Appropriate mood and affect.
Course
<Uma Galvin PA-C - Last Filed: 12/07/24 21:26>
Vital Signs
Initial and Last Documented VS:
Initial Vital Signs
Temp Pulse Resp BP Pulse Ox
97.5 F 93 20 161/79 100
12/07/24 11:50 12/07/24 11:50 12/07/24 11:50 12/07/24 11:50 12/07/24 11:50
Last Documented Vital Signs
Temp Pulse Resp BP Pulse Ox
97.5 F 86 20 152/78 95
12/07/24 11:50 12/07/24 13:57 12/07/24 13:57 12/07/24 13:57 12/07/24 13:57
<Anjum Zafar DO - Last Filed: 12/07/24 13:35>
Vital Signs
Initial and Last Documented VS:
Initial Vital Signs
Temp Pulse Resp BP Pulse Ox
97.5 F 93 20 161/79 100
12/07/24 11:50 12/07/24 11:50 12/07/24 11:50 12/07/24 11:50 12/07/24 11:50
Last Documented Vital Signs
Temp Pulse Resp BP Pulse Ox
97.5 F 86 20 152/78 95
12/07/24 11:50 12/07/24 13:57 12/07/24 13:57 12/07/24 13:57 12/07/24 13:57
Procedures
<Anjum Zafar DO - Last Filed: 12/07/24 13:35>
Nosebleed
Drug treatment: Epinephrine
Treatment: local pressure applied and other (Neosporin antibiotic)
Post treatment bleeding: none- good control
<Uma aGlvin PA-C - Last Filed: 12/07/24 21:26>
MDM/Problems Addressed
Differential Diagnosis Includes:
anterior epistaxis, posterior epistaxis, abrasion
MDM/Problems Addressed:
64 y/o male with pmh of AAA, afib on eliquis who presents to the ER today with concerns of a nosebleed. He does feel some blood traveling in the back of his throat. Notes mild lightheadedness but is overall feeling well. On physical exam, he does
have slow, mild epistaxis noted to right nare. Also has some blood in the pharynx. No septal hematoma. Pressure was held with a clamp and then he had epinephrine soaked cotton balls placed within the nare. On reassessment, there is no active
bleeding evident. We did apply bacitracin ointment as well. Patient stable for discharge. Return precautions discussed.
<Uma Galvin PA-C - Last Filed: 12/07/24 21:26>
*Critical Care Note
Total Time (30-74mins, 75-104mins- exclusive of procedures): Not Applicable
ED Attending Note
<Uma Galvin PA-C - Last Filed: 12/07/24 21:26>
-
Portions of this chart may have been created with voice recognition software.� Occasional wrong word or��sound alike� substitutions may have occurred due to the inherent limitations of voice recognition software.
<Anjum Zafar DO - Last Filed: 12/07/24 13:35>
ED Attending Note
Patient seen and examined by attending physician: Yes
I performed the substantive portion of visit, reviewed & personally made and approve the management plan that is documented in note by myself or JOSUE.: Yes
ED Attending Note:
Seen with PA examined independently spontaneous right-sided nosebleed on Eliquis is stopped placed some antibiotic ointment
Discharge Plan
Departure
Patient Disposition: Home (Routine Discharge)
Date of Disposition: 12/07/24
Time of Disposition: 13:52
Patient with high blood pressure during this ER visit?: Yes
Condition: Good
Discharge Problem:
Acute anterior epistaxis
Instructions: Nosebleeds (DC), BLOOD PRESSURE
Prescriptions:
No Action
trazodone 100 mg Tablet
200 mg PO HSPRN PRN (Reason: sleep)
Eliquis 5 mg Tablet
5 mg PO BID
Wegovy 1 mg/0.5 mL Pen Injector
1 mg SC QWEEK
Rx Instructions:
stopped ~17 days ago
duloxetine 60 mg Capsule,Delayed Release(Dr/Ec)
60 mg PO DAILY Qty: 30 1RF
atorvastatin 40 mg tablet
40 mg PO DAILY Qty: 90 3RF
acetaminophen 325 mg Tablet
650 mg PO Q4HPRN PRN (Reason: mild pain,headache,temp >101F ) Qty: 0 0RF
gabapentin 600 mg Tablet
600 mg PO DAILY Qty: 0 0RF
metoprolol tartrate 25 mg Tablet
25 mg PO Q12 Qty: 60 1RF
aspirin 81 mg Tablet,Chewable
81 mg PO DAILY Qty: 0 0RF
Rx Instructions:
Please purchase over the counter
oxycodone 5 mg Tablet
5 mg PO Q6HPRN PRN (Reason: moderate-severe pain) Qty: 30 0RF
Rx Instructions:
Ongoing pain control. Attending Dr. Cisco Moreno MD
pantoprazole 40 mg Tablet,Delayed Release (Dr/Ec)
40 mg PO DAILY Qty: 30 1RF
Rx Instructions:
GI prophylaxis with aspirin and Eliquis. Obtain further refills from PCP/cardiology
amiodarone 200 mg Tablet
200 mg PO BID Qty: 90 0RF
Rx Instructions:
Take 200 mg(1tab) BID x14 days, then take 200 mg(1 tab) daily until seen by Cardiology
furosemide [Lasix] 40 mg tablet
40 mg PO DAILY Qty: 5 0RF
Rx Instructions:
Take Lasix 40 mg daily x5 days and then stop unless instructed otherwise
potassium chloride 20 mEq tablet extended release
20 meq PO DAILY Qty: 5 0RF
Rx Instructions:
Take potassium chloride 20 meq daily x 5 days with Lasix then stop unless instructed otherwise
docusate sodium [Stool Softener] 100 mg Capsule
100 mg PO BID
Referrals:
Ray Turner CRNP [Family Provider] -
Devonte Vinson MD [Active] - Call in 1-3 days for appt
Activity Restrictions/Additional Instructions:
Please continue your Eliquis.
Please follow up with your primary care provider.
PLEASE RETURN TO THE EMERGENCY DEPARTMENT SHOULD YOU EXPERIENCE DIZZINESS, FAINTING SPELLS, VOMITING BLOOD, CHEST PAIN, SHORTNESS OF BREATH, OR ANY OTHER SIGNS OR SYMPTOMS WORRISOME TO YOU.
Interventions
Interventions:
*Risk Screen - Suicide Last Done: 12/07/24 12:10
*General Assessment Last Done: 12/07/24 12:10
*Neglect/Abuse Screening Last Done: 12/07/24 12:10
*ED- Fall Risk Assessment Last Done: 12/07/24 12:10
*ED COVID-19 Vaccine History Last Done: 12/07/24 12:10
*Nursing Disposition Last Done: 12/07/24 14:02
ED-EENT Assessment Last Done: 12/07/24 12:08
Discharge Date and Time
Discharge Date/Time: 12/07/24 14:02
Print Language: ANDORRAN
[2024-12-07 13:57] VITALS: BP 152/78
== END 2024-12-07 14:02 | disposition home or self-care (01) ==
LOC: EMR 11:46
PROVIDERS: EMERGENCY PHYSICIAN Emergency Medicine; FAMILY PHYSICIAN Nurse Practitioner Family
DX: R04.0 Epistaxis (principal); I71.40 Abdominal aortic aneurysm, without rupture, unspecified; I48.91 Unspecified atrial fibrillation; I10 Essential (primary) hypertension; Z79.01 Long term (current) use of anticoagulants; Z86.79 Personal history of other diseases of the circulatory system
CPT/HCPCS: 99282; 30901

== ENCOUNTER 2025-02-02 11:14 | Outpatient (RCR) | payer BC, SELFPAY | END 2025-02-02 23:59 | disposition home or self-care (01) | LOC: CRHB 11:14 | PROVIDERS: ATTENDING PHYSICIAN Internal Medicine Interventional Cardiology; FAMILY PHYSICIAN Nurse Practitioner Family | DX: Z95.4 Presence of other heart-valve replacement (principal) | CPT/HCPCS: 93797; 93798 ==

== ENCOUNTER → 2025-04-08 16:07 | Outpatient (REF) | payer BC, SELFPAY | LOC: RCS 16:07 | PROVIDERS: ATTENDING PHYSICIAN Nurse Practitioner Acute Care | DX: Z98.890 Other specified postprocedural states (principal) | CPT/HCPCS: 71275; 93306; Q9967 ==

== ENCOUNTER → 2025-04-29 11:38 | Outpatient (REF) | payer BC, SELFPAY ==
[2025-04-29 12:10] LABS: Hematocrit 43.7 % (39.0-52.0); Hemoglobin 15.0 g/dL (13.0-18.0); Mean Corp Hgb Conc. 34.3 g/dL (33.0-37.0); Mean Corpuscular Volume 82.3 fL (80.0-94.0); Nucleated Red Blood Cells % 0 % (-); Platelet Count 242 10^3/uL (130-400); Red Cell Dist. Width 14.2 % (11.5-14.5)
[2025-04-29 12:23] LABS: ALT (SGPT) 20 U/L (0-50); AST (SGOT) 21 U/L (17-59); Albumin 5.1 g/dl (3.5-5.0); Alkaline Phosphatase 88 U/L (38-126); Blood Urea Nitrogen 18 mg/dl (9-20); Calcium 9.7 mg/dl (8.4-10.2); Carbon Dioxide 29 mmol/L (22-30); Chloride 101 mmol/L (98-107); Glucose 118 mg/dl (70-99); Lipase 124 U/L (23-300); Potassium 4.1 mmol/L (3.5-5.1); Sodium 140 mmol/L (135-145); Total Protein 8.0 g/dl (6.3-8.2); eGFR > 60.00
== END ==
LOC: RAD 11:38
PROVIDERS: ATTENDING PHYSICIAN Nurse Practitioner Family
DX: R10.9 Unspecified abdominal pain (principal)
CPT/HCPCS: 36415; 74177; 80053; 83690; 85025; Q9967